=== PATIENT | female | born 1950 | race Caucasian/White ===

== ENCOUNTER 2017-06-24 17:43 | Emergency (ER) | payer MEDICARE ==
[2017-06-24 18:05] VITALS: RESP 18
--- NOTE | 2017-06-24 18:34 | ED ---
Lower Extremity Injury HPI - General Chief Complaint: Extremity Injury, Lower Stated Complaint: FALL, RT LEG AND KNEE INJURY POSS BLOODCLOT Time Seen by Provider: 06/24/17 18:09 Source: patient, RN notes reviewed Mode of arrival: wheelchair Limitations: no limitations - History of Present Illness Initial Comments: 66-year-old female presents emergency Department chief complaint trip and fall. Patient states she fell 4 days ago onto her right knee and right russell region. She states that it immediately started swelling and she's had bruising. States of bruising seems to traveling down her right leg. She denies any calf pain or swelling to the calf. She does have some mild right anterior russell swelling in one of her right knee. She states that it hurts to ambulate. Patient denies any paresthesias denies any swelling to her thigh or right ankle region. She states pain is related to her right knee and right proximal tib- fib region - Related Data Home Medications Medication Instructions Recorded Confirmed ALPRAZolam [Xanax] 0.5 mg PO DAILY 02/12/14 03/14/16 Atenolol [Tenormin] 25 mg PO DAILY 02/12/14 03/14/16 Fish Oil/Dha/Epa [Fish Oil 1,200 1 each PO DAILY 02/12/14 03/14/16 mg Fish Oil] Levothyroxine Sodium [Synthroid] 125 mcg PO DAILY 02/12/14 03/14/16 Sertraline [Zoloft] 200 mg PO DAILY 02/12/14 03/14/16 Ubidecarenone [Coq-10] 200 mg PO DAILY 02/12/14 03/14/16 Vitamin D3 Drops 1 drop PO DAILY 08/08/14 03/14/16 Previous Rx's Medication Instructions Recorded Acetaminophen-Codeine 300-30mg 1 tab PO Q4H PRN #20 tablet 06/24/17 [Tylenol #3] Allergies Allergy/AdvReac Type Severity Reaction Status Date / Time latex Allergy Rash/Hives Verified 06/24/17 18:05 Tetracyclines Allergy Nausea & Verified 06/24/17 18:05 Vomiting,diarrhea ampicillin AdvReac Flu Verified 06/24/17 18:05 symptoms dial soap Allergy Itching Uncoded 06/24/17 18:05 Review of Systems ROS Statement: Those systems with pertinent positive or pertinent negative responses have been documented in the HPI. ROS Other: All systems not noted in ROS Statement are negative. Past Medical History Past Medical History: Cancer, Fibromyalgia, GERD/Reflux, Hyperlipidemia, Hypertension, Osteoarthritis (OA), Pneumonia, Skin Disorder, Sleep Apnea/CPAP/ BIPAP, Thyroid Disorder Additional Past Medical History / Comment(s): stage 2 Bladder cancer , Heart "Flutter" and palpitations, "spastic angina", varicose veins, hiatal hernia, reddness in arms and legs, hypoglucemia, urinary incontinence, vertigo History of Any Multi-Drug Resistant Organisms: MRSA Date of last positivie culture/infection: 11/2015 MDRO Source:: abdominal fold and nose Past Surgical History: Adenoidectomy, Appendectomy, Bladder Surgery, Hysterectomy, Tonsillectomy Additional Past Surgical History / Comment(s): D&C's, CARPAL TUNNEL GERALDINE, tumor removed from bladder, Past Anesthesia/Blood Transfusion Reactions: Motion Sickness, Postoperative Nausea & Vomiting (PONV) Additional Past Anesthesia/Blood Transfusion Reaction / Comment(s): CLAUSTROPHOBIA Past Psychological History: Anxiety, Depression Smoking Status: Never smoker Past Alcohol Use History: None Reported Past Drug Use History: None Reported - Past Family History Father Family Medical History: Cancer Additional Family Medical History / Comment(s): colon Mother Family Medical History: Diabetes Mellitus, Thyroid Disorder General Exam Limitations: no limitations General appearance: alert, in no apparent distress Head exam: Present: atraumatic, normocephalic, normal inspection Eye exam: Present: normal appearance, PERRL, EOMI. Absent: scleral icterus, conjunctival injection, periorbital swelling Respiratory exam: Present: normal lung sounds bilaterally. Absent: respiratory distress, wheezes, rales, rhonchi, stridor Cardiovascular Exam: Present: regular rate, normal rhythm, normal heart sounds. Absent: systolic murmur, diastolic murmur, rubs, gallop, clicks Extremities exam: Present: other (Right knee there is mild swelling with ecchymosis noted On the Right and Ecchymosis on the Lateral Portion of the Distal Leg. Patient Is Full Range Of Motion of the Right Knee There Is Mild Swelling to the Proximal Tib-Fib Region There Is Some Erythema Noted of the Distal Right Leg. Pulses Are Equal Bilaterally) Course Vital Signs 06/24/17 18:02 Temperature 98.2 F Pulse Rate 57 L Respiratory 18 Rate Blood Pressure 160/79 O2 Sat by Pulse 99 Oximetry Medical Decision Making - Medical Decision Making 66-year-old female presented emergency department for fall, right leg pain. Patient does have some swelling related to that injury. Patient has no acute fractures she does have severe degenerative changes to her right knee. Patient advised to follow-up with orthopedics return parameters were discussed. Disposition Clinical Impression: Fall, Contusion of knee, right, Traumatic ecchymosis of right lower leg Disposition: HOME SELF-CARE Condition: Stable Instructions: Knee Pain (ED) Additional Instructions: Please return to the Emergency Department if symptoms worsen or any other concerns. Prescriptions: Acetaminophen-Codeine 300-30mg [Tylenol #3] 1 tab PO Q4H PRN #20 tablet PRN Reason: pain Referrals: Yani Roth DO [Primary Care Provider] - 1-2 days Time of Disposition: 18:54
--- NOTE | 2017-06-24 18:41 | XR ---
EXAMINATION TYPE: XR knee complete RT, XR tibia fibula RT DATE OF EXAM: 06/24/2017 CLINICAL HISTORY: Right knee and leg pain after fall injury today TECHNIQUE: Three views of the right knee are obtained. 2 views right tibia and fibula are acquired. COMPARISON: None. FINDINGS: There is no acute fracture/dislocation evident in right knee. There is advanced joint spac e loss and subchondral cystic change lateral tibiofemoral compartment. There is moderate joint space loss and spurring patellofemoral compartment there is soft tissue prominence felt to reflect combina tion of patient's large body habitus and mild diffuse subcutaneous edema. Images of right leg show mild to moderate diffuse subcutaneous edema. There is no acute fracture or d islocation seen. Visualized portion of ankle is felt within normal limits. IMPRESSION: There is no acute fracture or dislocation in the right leg or knee.
[2017-06-24 19:36] VITALS: BP 135/63; PULSE 60; TEMP 97.9
== END 2017-06-24 19:36 | disposition home or self-care (01) ==
LOC: EC 17:43
DX: S80.01XA Contusion of right knee, initial encounter (principal); S80.11XA Contusion of right lower leg, initial encounter; I10 Essential (primary) hypertension; E07.9 Disorder of thyroid, unspecified; F41.9 Anxiety disorder, unspecified; F32.9 Major depressive disorder, single episode, unspecified; G47.30 Sleep apnea, unspecified; Z99.89 Dependence on other enabling machines and devices; Z86.14 Personal history of Methicillin resistant Staphylococcus aureus infection; Z85.51 Personal history of malignant neoplasm of bladder; Z79.899 Other long term (current) drug therapy; Z91.040 Latex allergy status; Z88.1 Allergy status to other antibiotic agents; Z88.0 Allergy status to penicillin; Z91.048 Other nonmedicinal substance allergy status; W01.0XXA Fall on same level from slipping, tripping and stumbling without subsequent striking against object, initial encounter
CPT/HCPCS: 99283

== ENCOUNTER → 2017-09-11 | Outpatient (CLI) | payer MEDICARE ==
--- NOTE | 2017-09-11 11:21 | US ---
EXAMINATION TYPE: US venous doppler duplex LE RT DATE OF EXAM: 09/11/2017 10:58 AM COMPARISON: NONE CLINICAL HISTORY: R22.43 Localized Swelling. Edema right leg SIDE PERFORMED: right TECHNIQUE: The lower extremity deep venous system is examined utilizing real time linear array sonog yoly with graded compression, doppler sonography and color-flow sonography. VESSELS IMAGED: External Iliac Vein (EIV) Common Femoral Vein Deep Femoral Vein Greater Saphenous Vein * Femoral Vein Popliteal Vein Small Saphenous Vein * Proximal Calf Veins (* superficial vessels) Right Leg: No evidence of DVT as visualized. Anechoic area right popliteal fossa = 2.4cm, probable B andres's cyst Grayscale, color doppler, spectral doppler imaging performed of the deep veins of the right lower ext remity. There is normal flow, compressibility, vascular waveforms. IMPRESSION: No ultrasound evidence for acute DVT in the right lower extremity. Small popliteal or marissa er cyst is marked towards end of study.
== END | disposition home or self-care (01) ==
LOC: RADUSWWP 10:27
PROVIDERS: ATTEND Family Medicine
DX: R22.41 Localized swelling, mass and lump, right lower limb (principal)

== ENCOUNTER → 2017-09-25 | Outpatient (CLI) | payer MEDICARE ==
--- NOTE | 2017-09-25 13:21 | MR ---
EXAMINATION TYPE: MR knee RT wo con DATE OF EXAM: 09/25/2017 COMPARISON: X-ray of the knee dated 06/24/2017 HISTORY: Right knee pain TECHNIQUE: Multiplanar, multisequence imaging of the right knee is performed without IV contrast. FINDINGS: There is severe narrowing of the lateral compartment of the knee joint with no evidence of erosive change. Moderate to severe narrowing of the medial compartment of the knee joint. There is a large suprapatellar bursal fluid collection. There does appear to be evidence of complete loss of patellar cartilage compatible with chondromalacia. Loss of cartilage involving the articular portions of the tibia and femur both of the medial and late ral compartment of the joint space compatible with chondromalacia likely post arthritic. There is grade 3 abnormal signal involving the posterior horn of the medial meniscus and there is pse udo extrusion of the meniscus. Increased fluid surrounding the MCL suggest strain without evidence of tear. Lateral collateral ligament appears intact. There is grade 3 abnormal signal involving the posterior horn and body of the lateral meniscus compatible with meniscal tear. Posterior cruciate ligament is intact. There is poor visualization of the anterior cruciate ligament and at least a partial tear suspected. Within the popliteal fossa there is a cyst measuring 1 x 1 x 2.2 cm. There is diffuse subcutaneous edema with more localized pocket of fluid accumulation along the inferi or margin of the patellar tendon. Is not entirely included in the [id number] but measures at least 7 cm in craniocaudal dimension. Patellar and quadriceps tendons have a normal appearance. Fluid trac ks along the prepatellar space. Abnormal signal within the visualized marrow likely is reactive post arthritic IMPRESSION: 1. Severe osteoarthritis with degenerative meniscal tears involving the medial and lateral meniscus a s discussed above. 2. Poor visualization the ACL suggestive of at least partial tear. 3. 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 4. MCL strain. 5. Subcutaneous fluid collection in the prepatellar space extending below the [id number] with diff use subcutaneous edema correlate clinically.
== END | disposition home or self-care (01) ==
LOC: RADMRIMAIN 12:27
PROVIDERS: ATTEND Family Medicine
DX: S83.241A Other tear of medial meniscus, current injury, right knee, initial encounter (principal); S83.281A Other tear of lateral meniscus, current injury, right knee, initial encounter; M17.11 Unilateral primary osteoarthritis, right knee; M94.261 Chondromalacia, right knee; S86.811A Strain of other muscle(s) and tendon(s) at lower leg level, right leg, initial encounter

== ENCOUNTER → 2018-02-22 | Outpatient (CLI) | payer MEDICARE, OTHER ==
--- NOTE | 2018-02-22 15:20 | CT ---
EXAMINATION TYPE: CT abdomen pelvis w con DATE OF EXAM: 02/22/2018 COMPARISON: Prior CT chest abdomen pelvis 08/07/2013 HISTORY: Follow up scan for history of bladder cancer, obs for METS CT DLP: 2530.4 mGycm Automated exposure control for dose reduction was used. TECHNIQUE: Helical acquisition of images from the lung bases through the pelvis have been completed. CONTRAST: Performed with Oral Contrast and with IV Contrast, patient injected with 100 mL of Isovue 300. FINDINGS: LUNG BASES: No significant abnormality is appreciated. AORTA: No significant abnormality is appreciated. LIVER/GB: No significant abnormality is appreciated. PANCREAS: No significant abnormality is seen. SPLEEN: No significant abnormality is seen. ADRENALS: No significant abnormality is seen. KIDNEYS: Stable atrophy noted within the left kidney as compared to right, right kidney somewhat malr otated. REPRODUCTIVE ORGANS: Uterus and adnexal structures are not seen BOWEL: No significant abnormality is seen. FREE AIR: No Free Air visible. ASCITES: None visible. PELVIC ADENOPATHY: None visualized. RETROPERITONEAL ADENOPATHY: No Retroperitoneal Adenopathy visible. URINARY BLADDER: No significant abnormality is seen. OSSEOUS STRUCTURES: Stable, possible stress changes at the sacroiliac joints. IMPRESSION: METASTATIC DISEASE IS NOT EVIDENT.
== END | disposition home or self-care (01) ==
LOC: RADCTMAIN 11:33
PROVIDERS: ATTEND Internal Medicine Hematology & Oncology
DX: C67.9 Malignant neoplasm of bladder, unspecified (principal)
CPT/HCPCS: 82565; 84520; 74177; 36415; Q9967

== ENCOUNTER 2019-12-23 05:15 | Observation (INO) | payer MEDICARE, OTHER ==
--- NOTE | 2019-12-23 06:04 | ED ---
Weakness HPI - General Chief complaint: Weakness Stated complaint: Weakness Time Seen by Provider: 12/23/19 05:17 Source: patient, EMS Mode of arrival: EMS Limitations: no limitations - History of Present Illness Initial comments: This patient is 69-year-old woman who presents by ambulance to be evaluated for right-sided numbness and lightheadedness. The patient states that she was in her kitchen this morning approximately 4 AM when she noted a feeling of numbness first in her right leg, and then also the right arm. Patient also noted that she was feeling lightheaded. When the symptoms did not rapidly go away and decided to call EMS who transported the patient here. The patient states that she has previously seen the neurologist and was told that she probably had some small vessel disease. Patient states that he numbness has markedly improved is not back to 100%. Patient denies weakness. No change in vision, speech or swallowing. MD Complaint: numbness Onset/Timin -: minutes(s) Location: [facility] Quality: numbness Consistency: now resolved Improves with: none Worsens with: none Associated Symptoms: other (Lightheadedness) - Related Data Home Medications Medication Instructions Recorded Confirmed ALPRAZolam [Xanax] 0.5 mg PO DAILY 02/12/14 06/24/17 Atenolol [Tenormin] 25 mg PO DAILY 02/12/14 06/24/17 Fish Oil/Dha/Epa [Fish Oil 1,200 1 cap PO DAILY 02/12/14 06/24/17 mg Fish Oil] Levothyroxine Sodium [Synthroid] 125 mcg PO DAILY 02/12/14 06/24/17 Sertraline [Zoloft] 200 mg PO DAILY 02/12/14 06/24/17 Ubidecarenone [Coq-10] 200 mg PO DAILY 02/12/14 06/24/17 Vitamin D3 Drops 1 drop PO DAILY 08/08/14 06/24/17 Previous Rx's Medication Instructions Recorded Acetaminophen-Codeine 300-30mg 1 tab PO Q4H PRN #20 tablet 06/24/17 [Tylenol #3] Allergies Allergy/AdvReac Type Severity Reaction Status Date / Time latex Allergy Rash/Hives Verified 06/24/17 18:53 Tetracyclines Allergy Nausea & Verified 06/24/17 18:53 Vomiting,diarrhea ampicillin AdvReac Flu Verified 06/24/17 18:53 symptoms dial soap Allergy Itching Uncoded 06/24/17 18:05 Review of Systems ROS Statement: Those systems with pertinent positive or pertinent negative responses have been documented in the HPI. ROS Other: All systems not noted in ROS Statement are negative. Constitutional: Denies: fever, chills, weakness Eyes: Denies: vision change Respiratory: Denies: cough, dyspnea Cardiovascular: Denies: chest pain, palpitations, orthopnea, edema, syncope Gastrointestinal: Denies: abdominal pain, vomiting, diarrhea Genitourinary: Denies: dysuria, hematuria Musculoskeletal: Denies: back pain Skin: Denies: rash Neurological: Reports: numbness. Denies: headache, weakness, paresthesias, co nfusion Past Medical History Past Medical History: Cancer, Fibromyalgia, GERD/Reflux, Hyperlipidemia, Hypertension, Osteoarthritis (OA), Pneumonia, Skin Disorder, Sleep Apnea/CPAP/BIPAP, Thyroid Disorder Additional Past Medical History / Comment(s): stage 2 Bladder cancer , Heart "Flutter" and palpitations, "spastic angina", varicose veins, hiatal hernia, reddness in arms and legs, hypoglucemia, urinary incontinence, vertigo History of Any Multi-Drug Resistant Organisms: MRSA Date of last positivie culture/infection: 11/2015 MDRO Source:: abdominal fold and nose Past Surgical History: Adenoidectomy, Appendectomy, Bladder Surgery, Hysterectomy, Tonsillectomy Additional Past Surgical History / Comment(s): D&C's, CARPAL TUNNEL GERALDINE, tumor removed from bladder, Past Anesthesia/Blood Transfusion Reactions: Motion Sickness, Postoperative Nausea & Vomiting (PONV) Additional Past Anesthesia/Blood Transfusion Reaction / Comment(s): CLAUSTROPHOBIA Past Psychological History: Anxiety, Depression Smoking Status: Never smoker Past Alcohol Use History: None Reported Past Drug Use History: None Reported - Past Family History Father Family Medical History: Cancer Additional Family Medical History / Comment(s): colon Mother Family Medical History: Diabetes Mellitus, Thyroid Disorder General Exam Limitations: no limitations General appearance: alert, in no apparent distress Head exam: Present: atraumatic, normocephalic Eye exam: Present: normal appearance. Absent: scleral icterus, conjunctival injection ENT exam: Present: normal oropharynx Neck exam: Present: normal inspection Respiratory exam: Present: normal lung sounds bilaterally. Absent: respiratory distress, wheezes, rales, rhonchi, stridor Cardiovascular Exam: Present: regular rate, normal rhythm, normal heart sounds. Absent: systolic murmur, diastolic murmur, rubs, gallop GI/Abdominal exam: Present: soft. Absent: distended, tenderness, guarding, rebound, rigid, mass Extremities exam: Present: normal inspection, normal capillary refill. Absent: pedal edema, calf tenderness Back exam: Present: normal inspection. Absent: CVA tenderness (R), CVA tenderness (L) Neurological exam: Present: alert, oriented X3, CN II-XII intact. Absent: motor sensory deficit Skin exam: Present: warm, dry, intact, normal color. Absent: rash Course Vital Signs 12/23/19 12/23/19 12/23/19 05:17 06:03 06:20 Temperature 99.3 F Pulse Rate 85 84 72 Respiratory 18 18 Rate Blood Pressure 172/83 158/62 155/87 O2 Sat by Pulse 100 98 100 Oximetry 12/23/19 12/23/19 12/23/19 06:30 06:40 06:50 Temperature Pulse Rate 73 75 67 Respiratory Rate Blood Pressure 157/79 159/79 161/81 O2 Sat by Pulse 100 100 99 Oximetry 12/23/19 07:00 Temperature Pulse Rate 68 Respiratory Rate Blood Pressure 162/76 O2 Sat by Pulse 99 Oximetry - Reevaluation(s) Reevaluation #1: 12/23/19 06:18 Case is discussed with Dr. Valencia covering the stroke team tonight. His treatment recommendations are incorporated. EKG Findings - EKG Results: EKG: interpreted by ERMD, sinus rhythm (Rate 76 bpm) - Blocks, [place], Hypertrophy, ST Abn: AV and intraventricular conduction: left bundle branch block (fixed/int ermittent, complete/incomplete) (Incomplete) Chamber hypertrophy or enlargement: only voltage criteria for left ventricular hypertrophy Repolarization changes or abnormalities: nonspecific abnormality, ST segment, and/or T wave Medical Decision Making - Lab Data Result diagrams: 12/23/19 06:00 12/23/19 06:00 Lab Results 12/23/19 12/23/19 12/23/19 Range/Units 06:00 06:00 06:00 WBC 4.9 (3.8-10.6) k/uL RBC 3.93 (3.80-5.40) m/uL Hgb 12.3 (11.4-16.0) gm/dL Hct 36.6 (34.0-46.0) % MCV 93.0 (80.0-100.0) fL MCH 31.3 (25.0-35.0) pg MCHC 33.6 (31.0-37.0) g/dL RDW 15.4 (11.5-15.5) % Plt Count 166 (150-450) k/uL Neutrophils % 57 % Lymphocytes % 35 % Monocytes % 4 % Eosinophils % 3 % Basophils % 0 % Neutrophils # 2.8 (1.3-7.7) k/uL Lymphocytes # 1.7 (1.0-4.8) k/uL Monocytes # 0.2 (0-1.0) k/uL Eosinophils # 0.1 (0-0.7) k/uL Basophils # 0.0 (0-0.2) k/uL PT 9.8 (9.0-12.0) sec INR 0.9 (<1.2) APTT 23.4 (22.0-30.0) sec Sodium 138 (137-145) mmol/L Potassium 5.1 (3.5-5.1) mmol/L Chloride 104 (98-107) mmol/L Carbon Dioxide 26 (22-30) mmol/L Anion Gap 8 mmol/L BUN 26 H (7-17) mg/dL Creatinine 0.88 (0.52-1.04) mg/dL Est GFR (CKD-EPI)AfAm 79 (>60 ml/min/1.73 sqM) Est GFR (CKD-EPI)NonAf 69 (>60 ml/min/1.73 sqM) Glucose 92 (74-99) mg/dL POC Glucose (mg/dL) (75-99) mg/dL POC Glu [employer] ID Calcium 9.0 (8.4-10.2) mg/dL Total Bilirubin 0.7 (0.2-1.3) mg/dL AST 33 (14-36) U/L ALT 18 (4-34) U/L Alkaline Phosphatase 78 (38-126) U/L Troponin I (0.000-0.034) ng/mL Total Protein 7.4 (6.3-8.2) g/dL Albumin 4.5 (3.5-5.0) g/dL 12/23/19 12/23/19 Range/Units 06:00 06:25 WBC (3.8-10.6) k/uL RBC (3.80-5.40) m/uL Hgb (11.4-16.0) gm/dL Hct (34.0-46.0) % MCV (80.0-100.0) fL MCH (25.0-35.0) pg MCHC (31.0-37.0) g/dL RDW (11.5-15.5) % Plt Count (150-450) k/uL Neutrophils % % Lymphocytes % % Monocytes % % Eosinophils % % Basophils % % Neutrophils # (1.3-7.7) k/uL Lymphocytes # (1.0-4.8) k/uL Monocytes # (0-1.0) k/uL Eosinophils # (0-0.7) k/uL Basophils # (0-0.2) k/uL PT (9.0-12.0) sec INR (<1.2) APTT (22.0-30.0) sec Sodium (137-145) mmol/L Potassium (3.5-5.1) mmol/L Chloride (98-107) mmol/L Carbon Dioxide (22-30) mmol/L Anion Gap mmol/L BUN (7-17) mg/dL Creatinine (0.52-1.04) mg/dL Est GFR (CKD-EPI)AfAm (>60 ml/min/1.73 sqM) Est GFR (CKD-EPI)NonAf (>60 ml/min/1.73 sqM) Glucose (74-99) mg/dL POC Glucose (mg/dL) 97 (75-99) mg/dL POC Glu [employer] ID Tomas Martinez Calcium (8.4-10.2) mg/dL Total Bilirubin (0.2-1.3) mg/dL AST (14-36) U/L ALT (4-34) U/L Alkaline Phosphatase (38-126) U/L Troponin I <0.012 (0.000-0.034) ng/mL Total Protein (6.3-8.2) g/dL Albumin (3.5-5.0) g/dL Disposition Clinical Impression: Dizziness, TIA (transient ischemic attack) Disposition: ADMITTED IP TO THIS HOSP Condition: Fair Is patient prescribed a controlled substance at d/c from ED?: No Referrals: Yani Roth DO [Primary Care Provider] - 1-2 days
[2019-12-23 06:26] LABS: Glucose,Whole Blood 97 mg/dL (75-99)
[2019-12-23 06:28] LABS: Basophils % (A) 0 %; Eosinophils # (A) 0.1 k/uL (0-0.7); Eosinophils % (A) 3 %; HCT 36.6 % (34.0-46.0); HGB 12.3 gm/dL (11.4-16.0); Lymphocytes # (A) 1.7 k/uL (1.0-4.8); Lymphocytes % (A) 35 %; MCH 31.3 pg (25.0-35.0); MCHC 33.6 g/dL (31.0-37.0); Mean Platelet Volume 7.3; Monocytes # (A) 0.2 k/uL (0-1.0); Monocytes % (A) 4 %; Neutrophils # (A) 2.8 k/uL (1.3-7.7); Neutrophils % (A) 57 %; Platelet Count 166 k/uL (150-450); RBC 3.93 m/uL (3.80-5.40); RDW 15.4 % (11.5-15.5); WBC 4.9 k/uL (3.8-10.6)
--- NOTE | 2019-12-23 06:31 | CT ---
EXAMINATION TYPE: CT brain wo con for TPA DATE OF EXAM: 12/23/2019 COMPARISON: None HISTORY: Rt sided weakness CT DLP: mGycm Automated exposure control for dose reduction was used. There is some cerebral cortical atrophy. There is no mass effect nor midline shift. There is no sign of intracranial hemorrhage. There is 7 mm hypodensity in the left thalamus. There is small linear are a of hypodensity in the white matter of the insula right temporal lobe. These are consistent with old lacunar infarcts. There is no midline shift. There is no evidence of intracranial hemorrhage. The ca lvarium is intact. IMPRESSION: Cerebral atrophy. Old lacunar infarcts. No acute intracranial abnormality.
[2019-12-23 06:42] LABS: Albumin 4.5 g/dL (3.5-5.0); Total Bilirubin 0.7 mg/dL (0.2-1.3); Total Protein 7.4 g/dL (6.3-8.2)
[2019-12-23 06:43] LABS: Potassium 5.1 mmol/L (3.5-5.1)
[2019-12-23 06:53] LABS: INR 0.9 (<1.2); Partial Thromboplastin Time 23.4 sec (22.0-30.0); Prothrombin Time 9.8 sec (9.0-12.0)
--- NOTE | 2019-12-23 06:55 | CT ---
EXAMINATION TYPE: CT angio head neck DATE OF EXAM: 12/23/2019 COMPARISON: None HISTORY: Rt sided weakness CT DLP: 683.9 mGycm Automated exposure control for dose reduction was used. CONTRAST: Performed with IV Contrast, patient injected with 65 mL of Isovue 370. There are 3-D post processed images. Images were obtained from the aortic arch to the vertex of the brain with IV contrast. There is normal branching pattern of the great vessels on the aortic arch. There is bilateral arteria l flow in the subclavian arteries. There is arterial flow in the common internal and external carotid arteries bilaterally. There is wide patency of the carotid artery bifurcations. There is arterial fl ow in both vertebral arteries. Right vertebral artery is much larger than the left. The basilar arter y appears to fill only from the right vertebral artery. There is no evidence of carotid or vertebral artery aneurysm or dissection. There is arterial flow in the vertebrobasilar artery system. There is arterial flow in the anterior m iddle and posterior cerebral arteries. There is normal contrast opacification of the venous sinuses. I see no evidence of arterial stenosis. There is no evidence of intracranial aneurysm or neovasculari ty. There is no mass effect. IMPRESSION: Asymmetric vertebral arteries is probably developmental. No evidence of hemodynamic stenosis. No aneu rysm or neovascularity.
--- NOTE | 2019-12-23 07:01 | XR ---
EXAMINATION TYPE: XR chest 1V DATE OF EXAM: 12/23/2019 COMPARISON: 12/12/2015 HISTORY: Altered mental status TECHNIQUE: Single view FINDINGS: There is no heart failure nor confluent pneumonic infiltrate. Costophrenic angles are clear . There are chest leads. Bony thorax is intact. IMPRESSION: No active cardiopulmonary disease. Normal heart. No change.
[2019-12-23] MEDS ORDERED: ASPIRIN 325 MG TAB PO STA (07:06)
[2019-12-23] MEDS ORDERED: Acetaminophen-Codeine 300-30mg TAB PO PRN (07:09)
[2019-12-23] MEDS ORDERED: SERTRALINE 100 MG TAB PO SCH (09:00)
[2019-12-23] MEDS: ATENOLOL 25 MG TAB PO SCH (09:22)
[2019-12-23] MEDS: DOCUSATE 100 MG CAP PO SCH ×3 (09:22→22:30)
[2019-12-23] MEDS: LEVOTHYROXINE 125 MCG TAB PO SCH (09:22)
[2019-12-23] MEDS: ATORVASTATIN 40 MG TAB PO SCH ×2 (09:23→10:13)
[2019-12-23] MEDS: ALPRAZolam 0.5 MG TAB PO SCH (09:27)
[2019-12-23] MEDS: METOPROLOL SUCCINATE (ER) 25 MG TAB.ER.24H PO SCH (10:17)
[2019-12-23 16:30] LABS: Glucose,Whole Blood 107 mg/dL (75-99)
[2019-12-23] MEDS: SERTRALINE 100 MG TAB PO SCH (20:25)
[2019-12-23] MEDS ORDERED: ALPRAZolam 0.5 MG TAB PO PRN (21:00)
--- NOTE | 2019-12-23 22:16 | P.HPIM ---
History of Present Illness H&P Date: 12/23/19 Chief Complaint: numbness, weakness Mckenna Johnson is a 69 yo F with PMH of HTN, bladder cancer, postherpetic neuralgia, NICOLA who presented to the ED complaining of R sided tingling this morning. She states she was unable to sleep and around 4 am was in the kitchen when she felt numbness first in her R leg, then R arm with lightheadedness. When these symptoms persisted she called EMS and came to the ED. She notes she has seen neurology in the past due to chronic neuropathic pain and was told she has small vessel disease on imaging. On presentation she was hypertensive, labs normal, CT brain no acute process, CTA unremarkable. She feels her symptoms are significantly improved at this time. Review of Systems All systems: negative Constitutional: Denies chills, Denies fever Eyes: denies blurred vision, denies pain Ears, nose, mouth and throat: Denies headache, Denies sore throat Cardiovascular: Denies chest pain, Denies shortness of breath Respiratory: Denies cough Gastrointestinal: Denies abdominal pain, Denies diarrhea, Denies nausea, Denies vomiting Genitourinary: Denies dysuria, Denies hematuria Musculoskeletal: Denies myalgias Integumentary: Denies pruritus, Denies rash Neurological: Reports lack of coordination, Reports numbness, Reports weakness Psychiatric: Denies anxiety, Denies depression Endocrine: Denies fatigue, Denies weight change Past Medical History Past Medical History: Cancer, Fibromyalgia, GERD/Reflux, Hyperlipidemia, Hypertension, Osteoarthritis (OA), Pneumonia, Skin Disorder, Sleep Apnea/CPAP/BIPAP, Thyroid Disorder Additional Past Medical History / Comment(s): stage 2 Bladder cancer , Heart "Flutter" and palpitations, "spastic angina", varicose veins, hiatal hernia, reddness in arms and legs, hypoglycemia, urinary incontinence, vertigo History of Any Multi-Drug Resistant Organisms: MRSA Date of last positivie culture/infection: 11/2015 MDRO Source:: abdominal fold and nose Past Surgical History: Adenoidectomy, Appendectomy, Bladder Surgery, Hysterectomy, Tonsillectomy Additional Past Surgical History / Comment(s): D&C's, CARPAL TUNNEL GERALDINE, tumor removed from bladder, Past Anesthesia/Blood Transfusion Reactions: Motion Sickness, Postoperative Nausea & Vomiting (PONV) Additional Past Anesthesia/Blood Transfusion Reaction / Comment(s): CLAUSTROPHOBIA Past Psychological History: Anxiety, Depression Smoking Status: Never smoker Past Alcohol Use History: None Reported Past Drug Use History: None Reported - Past Family History Father Family Medical History: Cancer Additional Family Medical History / Comment(s): colon Mother Family Medical History: Diabetes Mellitus, Thyroid Disorder Medications and Allergies Home Medications Medication Instructions Recorded Confirmed Type Fish Oil/Dha/Epa [Fish Oil 1,200 1 cap PO DAILY 02/12/14 12/23/19 History mg Fish Oil] Levothyroxine Sodium [Synthroid] 125 mcg PO DAILY 02/12/14 12/23/19 History Sertraline [Zoloft] 200 mg PO W/SUPPER 02/12/14 12/23/19 History Ubidecarenone [Coq-10] 200 mg PO DAILY 02/12/14 12/23/19 History Vitamin D3 Drops 1 drop PO DAILY 08/08/14 12/23/19 History ALPRAZolam [Xanax] 0.5 mg PO W/SUPPER 12/23/19 12/23/19 History Amitriptyline HCl [Elavil] 10 - 20 mg PO HS 12/23/19 12/23/19 History L.acidoph,Paracasei, B.lactis 1 cap PO DAILY 12/23/19 12/23/19 History [Probiotic] Metoprolol Succinate [Toprol XL] 25 mg PO DAILY 12/23/19 12/23/19 History Nystatin 100,000 Unit/gm Powd 1 applic TOPICAL BID 12/23/19 12/23/19 History [Mycostatin Powder] Ramipril [Altace] 2.5 mg PO HS 12/23/19 12/23/19 History Allergies Allergy/AdvReac Type Severity Reaction Status Date / Time ampicillin AdvReac Flu Verified 12/23/19 07:28 symptoms clindamycin AdvReac Rash/Hives Verified 12/23/19 07:28 latex AdvReac Rash/Hives Verified 12/23/19 07:28 Tetracyclines AdvReac Nausea & Verified 12/23/19 07:28 Vomiting,diarrhea dial soap AdvReac Itching Uncoded 12/23/19 07:28 Physical Exam Vitals: Vital Signs Temp Pulse Pulse Resp BP BP Pulse Ox 12/23/19 20:00 97.9 F 68 18 120/55 98 12/23/19 14:37 97.3 F L 71 18 142/74 95 12/23/19 14:25 98.7 F 68 18 150/83 100 12/23/19 12:50 67 18 147/76 100 12/23/19 11:16 79 18 138/63 98 12/23/19 10:14 70 17 135/74 100 12/23/19 09:24 74 16 139/73 100 12/23/19 07:05 97.7 F 76 17 164/78 100 12/23/19 07:00 68 162/76 99 12/23/19 06:50 67 161/81 99 12/23/19 06:40 75 159/79 100 12/23/19 06:30 73 157/79 100 12/23/19 06:20 72 155/87 100 12/23/19 06:03 84 18 158/62 98 12/23/19 05:17 99.3 F 85 18 172/83 100 Intake and Output 12/23/19 12/23/19 12/23/19 06:59 14:59 22:59 Intake Total 350 Balance 350 Intake: Oral 350 Other: Weight 98.883 kg 98.883 kg General: well nourished, well developed, NAD. Vitals reviewed Eyes: PERRL, EOMI, conjunctiva normal HENT: normocephalic, mucus membranes moist Neck: supple, no JVD Lungs: normal respiratory effort, no wheezes or rales CV: Regular rate and rhythm, no murmur. Peripheral pulses 2+ Abdomen: soft, nondistended, no organomegaly Lymph: no cervical or axillary LAD Skin: warm and dry. Neuro: A&Ox3, normal mood and affect. Str 5/5 and symmetric BUE, CN II-XII intact Results CBC & Chem 7: 12/23/19 06:00 12/23/19 06:00 Labs: Abnormal Lab Results - Last 24 Hours (Table) 12/23/19 12/23/19 Range/Units 06:00 16:24 BUN 26 H (7-17) mg/dL POC Glucose (mg/dL) 107 H (75-99) mg/dL Thrombosis Risk Factor Assmnt - Choose All That Apply Any of the Below Risk Factors Present?: Yes Each Factor Represents 1 point: Obesity (BMI >25), Swollen legs (current) Each Risk Factor Represents 2 Points: Age 61-74 years Other congenital or acquired thrombophilia - If yes, enter type in comment: No Thrombosis Risk Factor Assessment Total Risk Factor Score: 4 Thrombosis Risk Factor Assessment Level: Moderate Risk Assessment and Plan (1) Numbness and tingling of right arm and leg Current Visit: Yes Status: Acute Code(s): R20.0 - ANESTHESIA OF SKIN; R20.2 - PARESTHESIA OF SKIN SNOMED Code(s): 24060005 (2) Generalized anxiety disorder Current Visit: Yes Status: Acute Code(s): F41.1 - GENERALIZED ANXIETY DISORDER SNOMED Code(s): 67472403 (3) Dizziness Current Visit: Yes Status: Acute Code(s): R42 - DIZZINESS AND GIDDINESS SNOMED Code(s): 986335311 (4) Fibromyalgia Current Visit: No Status: Acute Code(s): M79.7 - FIBROMYALGIA SNOMED Code(s): 302349525 (5) Hypertension Current Visit: No Status: Acute Code(s): I10 - ESSENTIAL (PRIMARY) HYPERTENSION SNOMED Code(s): 95688771 (6) Neuropathy Current Visit: No Status: Acute Code(s): G62.9 - POLYNEUROPATHY, UNSPECIFIED SNOMED Code(s): 210559543 Plan: 1. R arm and leg numbness and tingling. Concern this could represent TIA as CT does show old lacunar infarcts. Neurology consult. Start ASA and lipitor 2. HTN. Continue toprol 3. Hypothyroid. Continue synthroid 4. NICOLA. Continue zoloft
--- NOTE | 2019-12-23 22:21 | P.CNNES ---
History of Present Illness Consult date: 12/23/19 Requesting physician: Jay Garcia Reason for Consult: TIA versus ischemic stroke. History of Present Illness: Patient is a 69-year-old right-handed female, who came to the ER for right-sided numbness and lightheadedness. She was in her kitchen standing by the counter, in the morning approximately 4 AM when she noted a feeling of numbness first in the right leg and within a few minutes also involved the right arm. Subsequently she felt balance issues, difficulty getting around without holding onto any objects. She was feeling lightheaded. When the symptoms did not improve, she decided to come to the ER. Patient arrived in the ER at 5:15 AM. Patient's vitals on arrival shows blood pressure 172/83, pulse 85, temperature 99.3. Patient states that she has not slept that night, was wide awake before the symptoms started. Patient underwent CT head, which revealed cerebral atrophy. Old lacunar infarct. No acute intracranial abnormality. CT angiography of the head and neck showed asymmetric vertebral arteries is probably developmental. No evidence of hemodynamic stenosis. No aneurysm or neovascularity. Chest x-ray normal. EKG showed normal sinus rhythm. Incomplete left bundle-branch block. CBC, Chem-20 normal. Patient had a negative MS panel with negative oligoclonal bands on 03/19/2014. IgG index was negative. Patient denies any slurred speech, facial droop or visual loss, although patient briefly felt things were moving in the vision while she was standing on the counter. Denies any facial numbness. Patient states that all her symptoms resolved by 8-9 AM. At present she has no symptoms. No headache. Patient denies any history of strokes or TIA. She was previously told of having small vessel disease in the brain. Patient does not take any antiplatelet medication at home. She states that she was told by her piper installer to take baby aspirin 3 years ago but she has not been taking it. She denies any tobacco use. She has been told of having hypoglycemia, but also has hypertension. Denies diabetes. Review of Systems As per HPI. All other review of systems were reviewed and completely unremarkable. Past Medical History Past Medical History: Cancer, Fibromyalgia, GERD/Reflux, Hyperlipidemia, H ypertension, Osteoarthritis (OA), Pneumonia, Skin Disorder, Sleep Apnea/CPAP/BIPAP, Thyroid Disorder Additional Past Medical History / Comment(s): stage 2 Bladder cancer , Heart "Flutter" and palpitations, "spastic angina", varicose veins, hiatal hernia, reddness in arms and legs, hypoglycemia, urinary incontinence, vertigo History of Any Multi-Drug Resistant Organisms: MRSA Date of last positivie culture/infection: 11/2015 MDRO Source:: abdominal fold and nose Past Surgical History: Adenoidectomy, Appendectomy, Bladder Surgery, Hysterectomy, Tonsillectomy Additional Past Surgical History / Comment(s): D&C's, CARPAL TUNNEL GERALDINE, tumor removed from bladder, Past Anesthesia/Blood Transfusion Reactions: Motion Sickness, Postoperative Nausea & Vomiting (PONV) Additional Past Anesthesia/Blood Transfusion Reaction / Comment(s): CLAUSTROPHOBIA Past Psychological History: Anxiety, Depression Smoking Status: Never smoker Past Alcohol Use History: None Reported Past Drug Use History: None Reported - Past Family History Father Family Medical History: Cancer Additional Family Medical History / Comment(s): colon Mother Family Medical History: Diabetes Mellitus, Thyroid Disorder Medications and Allergies Home Medications Medication Instructions Recorded Confirmed Type Fish Oil/Dha/Epa [Fish Oil 1,200 1 cap PO DAILY 02/12/14 12/23/19 History mg Fish Oil] Levothyroxine Sodium [Synthroid] 125 mcg PO DAILY 02/12/14 12/23/19 History Sertraline [Zoloft] 200 mg PO W/SUPPER 02/12/14 12/23/19 History Ubidecarenone [Coq-10] 200 mg PO DAILY 02/12/14 12/23/19 History Vitamin D3 Drops 1 drop PO DAILY 08/08/14 12/23/19 History ALPRAZolam [Xanax] 0.5 mg PO W/SUPPER 12/23/19 12/23/19 History Amitriptyline HCl [Elavil] 10 - 20 mg PO HS 12/23/19 12/23/19 History L.acidoph,Paracasei, B.lactis 1 cap PO DAILY 12/23/19 12/23/19 History [Probiotic] Metoprolol Succinate [Toprol XL] 25 mg PO DAILY 12/23/19 12/23/19 History Nystatin 100,000 Unit/gm Powd 1 applic TOPICAL BID 12/23/19 12/23/19 History [Mycostatin Powder] Ramipril [Altace] 2.5 mg PO HS 12/23/19 12/23/19 History Allergies Allergy/AdvReac Type Severity Reaction Status Date / Time ampicillin AdvReac Flu Verified 12/23/19 07:28 symptoms clindamycin AdvReac Rash/Hives Verified 12/23/19 07:28 latex AdvReac Rash/Hives Verified 12/23/19 07:28 Tetracyclines AdvReac Nausea & Verified 12/23/19 07:28 Vomiting,diarrhea dial soap AdvReac Itching Uncoded 12/23/19 07:28 Physical Examination - Vital Signs Vital Signs: Vital Signs Temp Pulse Pulse Resp BP BP Pulse Ox 12/23/19 14:37 97.3 F L 71 18 142/74 95 12/23/19 14:25 98.7 F 68 18 150/83 100 12/23/19 12:50 67 18 147/76 100 12/23/19 11:16 79 18 138/63 98 12/23/19 10:14 70 17 135/74 100 12/23/19 09:24 74 16 139/73 100 12/23/19 07:05 97.7 F 76 17 164/78 100 12/23/19 07:00 68 162/76 99 12/23/19 06:50 67 161/81 99 12/23/19 06:40 75 159/79 100 12/23/19 06:30 73 157/79 100 12/23/19 06:20 72 155/87 100 12/23/19 06:03 84 18 158/62 98 12/23/19 05:17 99.3 F 85 18 172/83 100 Intake and Output 12/23/19 12/23/19 12/23/19 06:59 14:59 22:59 Intake Total 350 Balance 350 Intake: Oral 350 Other: Weight 98.883 kg 98.883 kg On examination patient is an elderly female, in no acute distress. Patient is alert awake oriented to time place and person. Speech and language functions are normal. Attention, concentration and fund of knowledge is adequate. On cranial nerve examination, pupils are round and reactive to light, visual shaver are full on confrontation. Extraocular muscle intact with no nystagmus. Face is symmetric and tongue protrudes the midline. Palate elevation sensation normal. Hearing and shoulder shrug normal. On muscle strength testing there is no pronator drift and the strength is normal in arms and legs distally and proximally. Reflexes are 1+ and plantars downgoing. Sensory touch is equal. No ataxia for [id number] testing. Tone and bulk of muscles normal. Gait deferred. There is no carotid bruit or murmur. Peripheral pulses are present. No edema. Abdomen is soft nontender. Chest is clear. Results - Laboratory Findings CBC and BMP: 12/23/19 06:00 12/23/19 06:00 Abnormal Lab Findings: Abnormal Labs 12/23/19 12/23/19 06:00 16:24 BUN 26 H POC Glucose (mg/dL) 107 H Assessment and Plan Assessment: * Probable TIA manifesting with numbness of the right arm and leg, slight gait imbalance and dizziness. Symptoms resolved in about 4-5 hours. * Hypertension * Obesity. Plan: * Patient will undergo an MRI of the brain to rule out CVA. Current NIH stroke scale is 0. * 2-D echo with bubble study to rule out PFO. * Fasting a.m. lipid panel, hemoglobin A1c, B12, folate and TSH. * Patient has been started on aspirin 325 mg and Lipitor. * We will follow.
[2019-12-23 22:45] LABS: Cholesterol 280 mg/dL (<200); HDL Cholesterol 57 mg/dL (40-60); LDL Cholesterol,Calculated 191 mg/dL (0-99); Triglycerides 161 mg/dL (<150)
[2019-12-24 00:02] LABS: T4, Free (Free Thyroxine) 1.52 ng/dL (0.78-2.19)
[2019-12-24 00:49] VITALS: RESP 16
[2019-12-24 05:20] LABS: Hemoglobin A1C 5.5 % (4.0-6.0)
[2019-12-24] MEDS: LEVOTHYROXINE 125 MCG TAB PO SCH (05:44)
[2019-12-24] MEDS: ASPIRIN 325 MG TAB PO SCH (07:55)
[2019-12-24] MEDS: METOPROLOL SUCCINATE (ER) 25 MG TAB.ER.24H PO SCH (07:55)
[2019-12-24] MEDS: ALPRAZolam 0.5 MG TAB PO SCH (07:55)
[2019-12-24] MEDS: DOCUSATE 100 MG CAP PO SCH ×3 (07:55→23:58)
[2019-12-24] MEDS: ATORVASTATIN 40 MG TAB PO SCH (07:55)
[2019-12-24] MEDS: ATENOLOL 25 MG TAB PO SCH (08:28)
--- NOTE | 2019-12-24 08:53 | MR ---
EXAMINATION TYPE: MR brain wo con DATE OF EXAM: 12/24/2019 8:43 AM COMPARISON: 02/12/2016 HISTORY: CVA versus TIA. Right sided numbness leg and arm, loss of coordination. FINDINGS: The ventricles, basal cisterns and sulci overlying the cerebral convexities are mildly enlarged. There is evidence of mild periventricular white matter ischemic demyelination. Remote deep white matter insults are also noted. No acute edema is seen on diffusion weighted imaging. There is no evidence for midline shift or mass effect. Acute intracranial hemorrhage or extra-axial collection is not evident. The paranasal sinuses and mastoid air cells are well-aerated. IMPRESSION: Age-related atrophic and chronic small vessel ischemic change. No acute intracranial process at this time.
[2019-12-24 11:41] LABS: Folate, Serum 18.4 ng/mL
--- NOTE | 2019-12-24 11:49 | ECHOF ---
Referral Reason:CVA versus TIA MEASUREMENTS -------- HEIGHT: 152.4 cm WEIGHT: 103.0 kg BP: 122/57 RVIDd: 2.8 cm (< 3.3) IVSd: 1.3 cm (0.6 - 1.1) LVIDd: 4.4 cm (3.9 - 5.3) LVPWd: 1.2 cm (0.6 - 1.1) IVSs: 1.8 cm LVIDs: 3.0 cm LVPWs: 2.2 cm LA Diam: 3.2 cm (2.7 - 3.8) LAESV Index (A-L): 26.06 ml/m Ao Diam: 3.0 cm (2.0 - 3.7) AV Cusp: 1.8 cm (1.5 - 2.6) MV EXCURSION: 18.221 mm (> 18.000) MV EF SLOPE: 137 mm/s (70 - 150) EPSS: 0.7 cm MV E Curtis: 0.74 m/s MV DecT: 264 ms MV A Curtis: 0.92 m/s MV E/A Ratio: 0.81 FINDINGS -------- Sinus rhythm. This was a technically adequate study. The left ventricular size is normal. There is mild concentric left ventricular hypertrophy. Overa ll left ventricular systolic function is low-normal with, an EF between 50 - 55 %. The right ventricle is normal in size. Normal LA size by volume 22+/-6 ml/m2. The right atrial size is normal. Contrast study was performed with 2 iv injections of 8 ccs of agitated normal saline, at rest, and wi th cough. No PFO noted Interatrial and interventricular septum intact. There is mild aortic valve sclerosis. The mitral valve is normal. Mild mitral regurgitation is present. The tricuspid valve appears structurally normal. The pulmonic valve was not well visualized. The aortic root size is normal. Normal inferior vena cava with normal inspiratory collapse consistent with estimated right atrial pre ssure of 5 mmHg. There is no pericardial effusion. CONCLUSIONS -------- 1. There is mild concentric left ventricular hypertrophy. 2. Overall left ventricular systolic function is low-normal with, an EF between 50 - 55 %. 3. Normal LA size by volume 22+/-6 ml/m2. 4. Contrast study was performed with 2 iv injections of 8 ccs of agitated normal saline, at rest, and with cough. 5. No PFO noted 6. Interatrial and interventricular septum intact. 7. There is mild aortic valve sclerosis. 8. Mild mitral regurgitation is present. 9. The tricuspid valve appears structurally normal. 10. The pulmonic valve was not well visualized. 11. There is no pericardial effusion. MAXILLOFACIAL PROSTHETICS DENTIST: Sheyla Land RDCS
--- NOTE | 2019-12-24 17:48 | P.PN ---
Subjective Progress Note Date: 12/24/19 Patient feels fine. All symptoms resolved. She walked well. Objective - Vital Signs Vital signs: Vital Signs Temp 97.5 F L 12/24/19 16:00 Pulse 65 12/24/19 16:00 Resp 16 12/24/19 16:00 BP 140/71 12/24/19 16:00 Pulse Ox 98 12/24/19 16:00 Intake & Output 12/23/19 12/24/19 12/24/19 18:59 06:59 18:59 Intake Total 350 440 Balance 350 440 Weight 98.883 kg 103.2 kg Intake: Oral 350 440 Other: # Voids 1 2 - Exam Normal, nonfocal. - Labs CBC & Chem 7: 12/23/19 06:00 12/23/19 06:00 Labs: Abnormal Lab Results - Last 24 Hours (Table) 12/23/19 12/23/19 Range/Units 06:00 06:00 Triglycerides 161 H (<150) mg/dL Cholesterol 280 H (<200) mg/dL LDL Cholesterol, Calc 191 H (0-99) mg/dL TSH 0.388 L (0.465-4.680) mIU/L Assessment and Plan Assessment: * Probable TIA manifesting with numbness of the right arm and leg, slight gait imbalance and dizziness. Symptoms resolved in about 4-5 hours. * Hypertension * Hyperlipidemia * Obesity. Plan: * MRI of the brain negative for acute CVA. Current NIH stroke scale is 0. * 2-D echo with bubble study showed mild concentric LVH. Left ventricle systolic function is low normal with EF between 50-55%. Normal left atrial size. Contrast study was performed with 2 IV injections of 8 mL of agitated normal saline at rest and with cough. No PFO noted. Interatrial and interventricular septum intact. Mild aortic valve sclerosis. * Fasting a.m. lipid panel revealed total cholesterol 280, LDL 191, HDL 57 and triglycerides 161. Hemoglobin A1c 5.5. B12 496, folate 18.4, TSH is mildly decreased 0.388. * Continue aspirin 325 mg and Lipitor 40 mg. * Neurologically clear for discharge.
[2019-12-24] MEDS: SERTRALINE 100 MG TAB PO SCH (19:41)
--- NOTE | 2019-12-24 20:59 | P.PN ---
Subjective Progress Note Date: 12/24/19 Pt feels improved today, states her symptoms completely resolved yesterday as the day went on. Pt for echo today, labs show HLD. She is tolerating ASA and lipitor well Objective - Vital Signs Vital signs: Vital Signs Temp 97.5 F L 12/24/19 16:00 Pulse 65 12/24/19 16:00 Resp 16 12/24/19 16:00 BP 140/71 12/24/19 16:00 Pulse Ox 98 12/24/19 16:00 Intake & Output 12/24/19 12/24/19 12/25/19 06:59 18:59 06:59 Intake Total 680 Balance 680 Weight 103.2 kg Intake: Oral 680 Other: # Voids 1 2 - Exam Gen: well developed white female in NAD HEENT: normocephalic, atrauamtic, mucus membranes moist CV: RRR, no murmur Lungs: clear throughout. Normal effort Neuro: Alert and oriented x3, no focal deficits - Labs CBC & Chem 7: 12/23/19 06:00 12/23/19 06:00 Labs: Abnormal Lab Results - Last 24 Hours (Table) 12/23/19 12/23/19 Range/Units 06:00 06:00 Triglycerides 161 H (<150) mg/dL Cholesterol 280 H (<200) mg/dL LDL Cholesterol, Calc 191 H (0-99) mg/dL TSH 0.388 L (0.465-4.680) mIU/L Assessment and Plan (1) Numbness and tingling of right arm and leg Current Visit: Yes Status: Acute Code(s): R20.0 - ANESTHESIA OF SKIN; R20.2 - PARESTHESIA OF SKIN SNOMED Code(s): 92808696 (2) Generalized anxiety disorder Current Visit: Yes Status: Acute Code(s): F41.1 - GENERALIZED ANXIETY DISORDER SNOMED Code(s): 02820393 (3) Dizziness Current Visit: Yes Status: Acute Code(s): R42 - DIZZINESS AND GIDDINESS SNOMED Code(s): 713964155 (4) Fibromyalgia Current Visit: No Status: Acute Code(s): M79.7 - FIBROMYALGIA SNOMED Code(s): 060756790 (5) Hypertension Current Visit: No Status: Acute Code(s): I10 - ESSENTIAL (PRIMARY) HYPERTENSION SNOMED Code(s): 37506789 (6) Neuropathy Current Visit: No Status: Acute Code(s): G62.9 - POLYNEUROPATHY, UNSPECIFIED SNOMED Code(s): 501187657 Plan: Pt improved, Echo shows normal LVEF no evidence of PFO. MRI with no acute process and chronic small vessel disease. Pt tolerating aspirin and statin. Cleared by neurology. Anticipate discharge tomorrow
[2019-12-24] MEDS ORDERED: LISINOPRIL 10 MG TAB PO SCH (21:00)
[2019-12-24] MEDS ORDERED: AMITRIPTYLINE HCL 10 MG TAB PO SCH (21:00)
[2019-12-24 22:23] VITALS: PULSE 63
[2019-12-25] MEDS: LEVOTHYROXINE 125 MCG TAB PO SCH (06:14)
[2019-12-25] MEDS: ASPIRIN 325 MG TAB PO SCH (09:08)
[2019-12-25] MEDS: ALPRAZolam 0.5 MG TAB PO SCH (09:08)
[2019-12-25] MEDS: DOCUSATE 100 MG CAP PO SCH ×2 (09:08→18:08)
[2019-12-25] MEDS: METOPROLOL SUCCINATE (ER) 25 MG TAB.ER.24H PO SCH (09:08)
[2019-12-25] MEDS: ATORVASTATIN 40 MG TAB PO SCH (09:08)
--- NOTE | 2019-12-25 17:24 | P.PN ---
Subjective Progress Note Date: 12/25/19 Patient feels fine. All symptoms resolved. She walked well. Patient states that she has developed some muscle aching from Lipitor. Her primary physician is planning to switch from Lipitor to Crestor. Objective - Vital Signs Vital signs: Vital Signs Temp 97.8 F 12/25/19 12:00 Pulse 63 12/25/19 12:00 Resp 16 12/25/19 12:00 BP 126/74 12/25/19 12:00 Pulse Ox 96 12/25/19 12:00 Intake & Output 12/24/19 12/25/19 12/25/19 18:59 06:59 18:59 Intake Total 680 300 942 Balance 680 300 942 Weight 102.5 kg Intake: Oral 680 300 942 Other: # Voids 2 3 1 - Exam Normal, nonfocal. - Labs CBC & Chem 7: 12/23/19 06:00 12/23/19 06:00 Assessment and Plan Assessment: * Probable TIA manifesting with numbness of the right arm and leg, slight gait imbalance and dizziness. Symptoms resolved in about 4-5 hours. * Hypertension * Hyperlipidemia * Obesity. Plan: * MRI of the brain negative for acute CVA. Current NIH stroke scale is 0. * 2-D echo with bubble study showed mild concentric LVH. Left ventricle systolic function is low normal with EF between 50-55%. Normal left atrial size. Contrast study was performed with 2 IV injections of 8 mL of agitated normal saline at rest and with cough. No PFO noted. Interatrial and interventricular septum intact. Mild aortic valve sclerosis. * Fasting a.m. lipid panel revealed total cholesterol 280, LDL 191, HDL 57 and triglycerides 161. Hemoglobin A1c 5.5. B12 496, folate 18.4, TSH is mildly decreased 0.388. * Telemetry monitoring showing sinus rhythm, sinus bradycardia. * Continue aspirin 325 mg and Lipitor 40 mg. May lower aspirin dose to 81 mg daily after discharge. Discussed with the patient. * Neurologically clear for discharge.
--- NOTE | 2019-12-26 14:20 | P.DS ---
Providers Date of admission: 12/23/19 07:06 Expected date of discharge: 12/25/19 Attending physician: John Martin MD Consults: 12/23/19 07:07 Consult Physician Routine Consulting Provider: Sabi Aguilar Consult Reason/Comments: TIA vs ischemic stroke Do you want consulting provider notified?: Yes Primary care physician: Yani Roth [place] [facility] Course: Final Diagnoses: (1) Numbness and tingling of right arm and leg, probable TIA, symptoms resolved Current Visit: Yes Status: Acute Code(s): R20.0 - ANESTHESIA OF SKIN; R20.2 - PARESTHESIA OF SKIN SNOMED Code(s): 73684198 (2) Generalized anxiety disorder Current Visit: Yes Status: Acute Code(s): F41.1 - GENERALIZED ANXIETY DISORDER SNOMED Code(s): 30622458 (3) Dizziness Current Visit: Yes Status: Acute Code(s): R42 - DIZZINESS AND GIDDINESS SNOMED Code(s): 868042510 (4) Fibromyalgia Current Visit: No Status: Acute Code(s): M79.7 - FIBROMYALGIA SNOMED Code(s): 499466168 (5) Hypertension Current Visit: No Status: Acute Code(s): I10 - ESSENTIAL (PRIMARY) HYPERTENSION SNOMED Code(s): 42153914 (6) Neuropathy Current Visit: No Status: Acute Code(s): G62.9 - POLYNEUROPATHY, UNSPECIFIED SNOMED Code(s): 680378291 (7) morbid obesity, BMI 44.1 Hospital course:Mckenna Johnson is a 69 yo F with PMH of HTN, bladder cancer, postherpetic neuralgia, NICOLA who presented to the ED complaining of R sided tingling this morning. She states she was unable to sleep and around 4 am was in the kitchen when she felt numbness first in her R leg, then R arm with lightheadedness. When these symptoms persisted she called EMS and came to the ED. She notes she has seen neurology in the past due to chronic neuropathic pain and was told she has small vessel disease on imaging. On presentation she was hypertensive, labs normal, CT brain no acute process, CTA unremarkable. She feels her symptoms are significantly improved at this time. Evaluated by neurology.labs show HLD. Maintained on aspirin and statin. Complained of muscle achiness,changed Lipitor to Crestor at discharge .Echo shows normal LVEF no evidence of PFO. MRI with no acute process and chronic small vessel disease. Symptoms resolved. Significant clinical improvement. Patient will be discharged home pending final DC recommendations, clearance from neurology. The impression and plan of care has been dictated as directed. : I performed a history and examination of this patient, discussed the same with the dictator. I agree with the dictator's note ,documented as a scribe. Any additional findings or plans will be noted. Patient Condition at Discharge: Stable Plan - Discharge Summary Discharge Rx Participant: No New Discharge Prescriptions: New Rosuvastatin Calcium [Crestor] 20 mg PO DAILY #30 tab Aspirin EC [Ecotrin Low Dose] 81 mg PO DAILY #30 tablet.dr Oneal Sertraline [Zoloft] 200 mg PO W/SUPPER Levothyroxine Sodium [Synthroid] 125 mcg PO DAILY Ubidecarenone [Coq-10] 200 mg PO DAILY Fish Oil/Dha/Epa [Fish Oil 1,200 mg Fish Oil] 1 cap PO DAILY Vitamin D3 Drops 1 drop PO DAILY ALPRAZolam [Xanax] 0.5 mg PO W/SUPPER Amitriptyline HCl [Elavil] 10 - 20 mg PO HS Metoprolol Succinate [Toprol XL] 25 mg PO DAILY Nystatin 100,000 Unit/gm Powd [Mycostatin Powder] 1 applic TOPICAL BID Ramipril [Altace] 2.5 mg PO HS L.acidoph,Paracasei, B.lactis [Probiotic] 1 cap PO DAILY Discharge Medication List Fish Oil/Dha/Epa [Fish Oil 1,200 mg Fish Oil] 1 cap PO DAILY 02/12/14 [History] Levothyroxine Sodium [Synthroid] 125 mcg PO DAILY 02/12/14 [History] Sertraline [Zoloft] 200 mg PO W/SUPPER 02/12/14 [History] Ubidecarenone [Coq-10] 200 mg PO DAILY 02/12/14 [History] Vitamin D3 Drops 1 drop PO DAILY 08/08/14 [History] ALPRAZolam [Xanax] 0.5 mg PO W/SUPPER 12/23/19 [History] Amitriptyline HCl [Elavil] 10 - 20 mg PO HS 12/23/19 [History] L.acidoph,Paracasei, B.lactis [Probiotic] 1 cap PO DAILY 12/23/19 [History] Metoprolol Succinate [Toprol XL] 25 mg PO DAILY 12/23/19 [History] Nystatin 100,000 Unit/gm Powd [Mycostatin Powder] 1 applic TOPICAL BID 12/23/19 [History] Ramipril [Altace] 2.5 mg PO HS 12/23/19 [History] Aspirin EC [Ecotrin Low Dose] 81 mg PO DAILY #30 tablet. 12/25/19 [Rx] Rosuvastatin Calcium [Crestor] 20 mg PO DAILY #30 tab 12/25/19 [Rx] Follow up Appointment(s)/Referral(s): Wenceslao Yun DO [STAFF PHYSICIAN] - 2 Weeks (Pt call office for appointment, as office is closed at time of discharge.) Yani Roth DO [Primary Care Provider] - 3 Days (Pt call office for appointment, as office is closed at time of discharge.) Patient Instructions/Handouts: Transient Ischemic Attack (DC) Discharge Disposition: HOME SELF-CARE
[2019-12-27 07:49] VITALS: BP 126/74; TEMP 97.8
== END 2019-12-25 19:35 | disposition home or self-care (01) ==
LOC: EC 05:15 → 3SCARD 07:06
PROVIDERS: ADMIT Family Medicine; ATTEND Family Medicine
DX: R20.0 Anesthesia of skin (principal); R42 Dizziness and giddiness; R20.2 Paresthesia of skin; F41.1 Generalized anxiety disorder; Z03.818 Encounter for observation for suspected exposure to other biological agents ruled out; E03.9 Hypothyroidism, unspecified; I44.7 Left bundle-branch block, unspecified; I73.9 Peripheral vascular disease, unspecified; E16.2 Hypoglycemia, unspecified; M79.7 Fibromyalgia; E78.5 Hyperlipidemia, unspecified; M19.90 Unspecified osteoarthritis, unspecified site; K21.9 Gastro-esophageal reflux disease without esophagitis; I35.0 Nonrheumatic aortic (valve) stenosis; I10 Essential (primary) hypertension; B02.29 Other postherpetic nervous system involvement; R32 Unspecified urinary incontinence; K44.9 Diaphragmatic hernia without obstruction or gangrene; I83.90 Asymptomatic varicose veins of unspecified lower extremity; F40.240 Claustrophobia; F32.9 Major depressive disorder, single episode, unspecified; G62.9 Polyneuropathy, unspecified; E66.01 Morbid (severe) obesity due to excess calories; Z68.41 Body mass index [BMI] 40.0-44.9, adult; Z79.890 Hormone replacement therapy; Z79.899 Other long term (current) drug therapy; Z88.1 Allergy status to other antibiotic agents; Z91.040 Latex allergy status; Z88.0 Allergy status to penicillin; Z91.048 Other nonmedicinal substance allergy status; Z85.51 Personal history of malignant neoplasm of bladder; Z87.01 Personal history of pneumonia (recurrent); Z90.49 Acquired absence of other specified parts of digestive tract; Z90.710 Acquired absence of both cervix and uterus; Z86.14 Personal history of Methicillin resistant Staphylococcus aureus infection; Z86.73 Personal history of transient ischemic attack (TIA), and cerebral infarction without residual deficits; Z80.0 Family history of malignant neoplasm of digestive organs; Z83.3 Family history of diabetes mellitus; Z83.49 Family history of other endocrine, nutritional and metabolic diseases
CPT/HCPCS: 99285; 36415; 93005; 93306; 97161; 97535; 97165; 92523; 84439; 80061; 80053; 84443; 82607; 82746; 84484; 85025; 85610; 85730; 83036; 71045; 70496; 70450; 70498; 70551; G0378 ×3; U0003; Q9967

== ENCOUNTER → 2021-05-10 | Outpatient (CLI) | payer MEDICARE, OTHER ==
--- NOTE | 2021-05-10 22:14 | CT ---
EXAMINATION TYPE: CT abdomen pelvis w con DATE OF EXAM: 05/10/2021 HISTORY: H/O BLADDER CA CT DLP: 1712mGycm Automated Exposure Control for Dose Reduction was Utilized. CONTRAST: CT scan of the abdomen and pelvis is performed with IV Contrast, patient injected with 100 mL of Isov ue 300. COMPARISON: CT abdomen and pelvis February 22, 2018 FINDINGS: LUNG BASES: No significant abnormality is appreciated. LIVER/GB: No significant abnormality is appreciated. PANCREAS: No significant abnormality is seen. SPLEEN: No significant abnormality is seen. ADRENALS: No significant abnormality is seen. KIDNEYS: Symmetric cortical uptake and excretion without concerning renal mass or hydronephrosis seen bilaterally. Asymmetric diminished size and cortical thinning to the left kidney with 2 mm nonobstru cting calculus lower pole level axial image 31 redemonstrated. Bladder shows no intraluminal calculus or suspicious mass on current study. BOWEL: Oral contrast on the current study reaches level of the splenic flexure. No suspicious small o r large bowel dilatation. Terminal ileum appears within normal limits. Diverticula in the sigmoid col on are present. No CT evidence for acute diverticulitis. UTERUS/ADNEXA: Uterus surgically absent similar to prior. Scattered small pelvic phleboliths bilatera lly. LYMPH NODES: No greater than 1cm abdominal or pelvic lymph nodes are appreciated. OSSEOUS STRUCTURES: Facet arthropathy lower lumbar spine. Multilevel spinous process hypertrophy lumb ar spine.. OTHER: Moderate atherosclerotic calcification. IMPRESSION: No suspicious mass or adenopathy to suggest neoplastic recurrence. No significant change from prior CT.
== END | disposition home or self-care (01) ==
LOC: RADCTMAIN 15:34
PROVIDERS: ATTEND Internal Medicine Hematology & Oncology
DX: Z03.89 Encounter for observation for other suspected diseases and conditions ruled out (principal); Z85.51 Personal history of malignant neoplasm of bladder
CPT/HCPCS: 82565; 84520; 74177; 36415; Q9967

== ENCOUNTER → 2021-12-06 | Outpatient (CLI) | payer MEDICARE, OTHER ==
--- NOTE | 2021-12-07 13:57 | MM ---
Reason for Exam: Screening (asymptomatic). Last mammogram was performed 5 year(s) and 10 month(s) ago. Patient History: Menarche at age 15. Patient has no children. Left ovary removed at age 61. Right ovary removed at age 61. Hysterectomy at age 61. Postmenopausal. Previous chemotherapy. Risk Values: Malou 5 year model risk: 1.9%. NCI Lifetime model risk: 6.2%. Physical Findings: Physical Exam Performed After Images Prior Study Comparison: 12/08/2003 Bilateral Screening Mammogram, [facility]. 03/30/2010 Bilateral Screening Mammogram, [facility]. 01/28/2016 Bilateral Diagnostic Mammogram, [facility]. Tissue Density: There are scattered fibroglandular densities. Findings: Analyzed By CAD. Some mild chronic nodularity is within the right breast, stable. No suspicious groups of microcalcifications, spiculated or lobular masses, architectural distortion or other secondary signs of malignancy are mammographically apparent. Overall Assessment: Benign, BI-RAD 2 Management: Screening Mammogram of both breasts in 1 year. A negative mammogram report should not preclude additional follow up of suspicious palpable abnormalities. Patient should continue monthly self breast exam. A clinical breast exam by your physician is recommended on an annual basis and results should be correlated with mammographic findings. Electronically signed and approved by: Ran Balderrama D.O. Radiologis
--- NOTE | 2021-12-08 09:56 | BD ---
EXAMINATION TYPE: Axial Bone Density DATE OF EXAM: 12/06/2021 COMPARISON: NONE CLINICAL HISTORY: 70 years year old Female. ICD-10 CODE: N95.1 POST MENOPAUSAL SYMPTOMS Height: 57 IN Weight: 233 LBS RISK FACTORS HISTORY OF: Active: LIMITED Diet low in dairy products/other sources of calcium: YES Postmenopausal woman: TOTAL HYST AGE 55 Lost more than 2 inches in height since high school: YES 3" Frequent falls: BALANCE ISSUES Adrenal Insufficiency: YES MEDICATIONS: Thyroid Medications: YES Which medication: Levothyroxine How Lon YEARS Additional Medications: VIT D, MULTI VIT, PROBIOTIC, LEVOTHYROXINE,COQ10, FISH OIL,METOPROLOL, ZOLOFT , XANAX, RAMAPRIL, AMITRIPTALINE, Additional History: BLADDER CANCER WITH CHEMO EXAM MEASUREMENTS: Bone mineral densitometry was performed using the [employer] System. Bone mineral density as measured about the Lumbar spine is: ----- L1-L4(G/cm2): 1.180 T Score Values are as follows: ----- L1: -1.6 ----- L2: -0.7 ----- L3: 0.7 ----- L4: 1.0 ----- L1-L4: 0.0 Bone mineral density BASELINE Bone mineral density about the R hip (g/cm2): 0.825 Bone mineral density about the L hip (g/cm2): 0.784 T Score values are as follows: -----R Neck: -1.5 -----L Neck: -1.8 -----R Total: -0.8 -----L Total: -0.7 Bone mineral density BASELINE FRAX%s: The graph provided illustrates a 8.8 chance for a major osteoporotic fx and a 1.3 chance for the hips probability for fx in 10 years time. IMPRESSION: No evidence for osteoporosis or osteopenia. NOTE: T-SCORE=SD OF THE YOUNG ADULT MEAN.
== END | disposition home or self-care (01) ==
LOC: RADMAMWWP 16:03
PROVIDERS: ATTEND Obstetrics & Gynecology
DX: Z12.31 Encounter for screening mammogram for malignant neoplasm of breast (principal); M85.89 Other specified disorders of bone density and structure, multiple sites; Z78.0 Asymptomatic menopausal state
CPT/HCPCS: 77063; 77067; 77080

== ENCOUNTER → 2022-01-28 | Outpatient (CLI) | payer MEDICARE, OTHER ==
--- NOTE | 2022-01-31 07:48 | USB ---
Reason for Exam: Clinical finding. Patient History: Menarche at age 15. Patient has no children. Left ovary removed at age 61. Right ovary removed at age 61. Hysterectomy at age 61. Postmenopausal. Previous chemotherapy. Risk Values: Malou 5 year model risk: 1.9%. NCI Lifetime model risk: 5.9%. Prior Study Comparison: 03/30/2010 Bilateral Screening Mammogram, [facility]. 01/28/2016 Bilateral Diagnostic Mammogram, [facility]. 12/06/2021 Bilateral MG 3D screening mammo w/cad, [facility]. Findings: The whole breast of the left breast, the axilla of the left breast and the retroareolar of the left breast were scanned. No solid or cystic masses are identified. Overall Assessment: Negative, BI-RAD 1 Management: Return to routine follow-up (next follow-up: 12/06/2022 for Screening Mammogram) A clinical breast exam by your physician is recommended on an annual basis and results should be correlated with mammographic findings. Electronically signed and approved by: Samuel Mazariegos M.D. Radiologis
== END | disposition home or self-care (01) ==
LOC: RADUSWWP 15:09
PROVIDERS: ATTEND Obstetrics & Gynecology
DX: N64.4 Mastodynia (principal); Z78.0 Asymptomatic menopausal state

== ENCOUNTER 2022-06-15 11:40 | Emergency (ER) | payer MEDICARE, OTHER ==
--- NOTE | 2022-06-15 12:49 | US ---
EXAMINATION TYPE: US venous doppler duplex LE RT DATE OF EXAM: 06/15/2022 12:32 PM COMPARISON: NONE CLINICAL HISTORY: post surgery swelling to rt lower extremity. SIDE PERFORMED: TECHNIQUE: The lower extremity deep venous system is examined utilizing real time linear array sonog yoly with graded compression, doppler sonography and color-flow sonography. VESSELS IMAGED: Common Femoral Vein Deep Femoral Vein Greater Saphenous Vein * Femoral Vein Popliteal Vein Small Saphenous Vein * Proximal Calf Veins (* superficial vessels) Right Leg: Negative for DVT IMPRESSION: 1. Right lower extremity ultrasound negative for deep venous thrombosis.
--- NOTE | 2022-06-15 14:46 | XR ---
EXAMINATION TYPE: XR knee complete RT DATE OF EXAM: 06/15/2022 2:20 PM INDICATION: Patient age:Female; 71 years old; Reason for study: pain, redness, swelling, knee replacement on 05/19; COMPARISON: 06/24/2017 TECHNIQUE: The Right knee(s) was examined in Frontal, lateral and oblique projections. FINDINGS: Status post right total knee arthroplasty changes with hardware in appropriate alignment and intact. No evidence of fracture. No evidence of osseous erosion or subcutaneous lucencies. IMPRESSION: Status post total knee arthroplasty changes with hardware intact and appropriate alignment. No fractu res identified.
[2022-06-15 14:56] LABS: Basophils % (A) 0 %; Eosinophils # (A) 0.3 k/uL (0-0.7); Eosinophils % (A) 5 %; HCT 33.4 % (34.0-46.0); HGB 11.4 gm/dL (11.4-16.0); Hypochromasia Slight; Lymphocytes # (A) 1.1 k/uL (1.0-4.8); Lymphocytes % (A) 20 %; Mean Platelet Volume 7.7; Monocytes # (A) 0.2 k/uL (0-1.0); Monocytes % (A) 4 %; Neutrophils # (A) 3.8 k/uL (1.3-7.7); Neutrophils % (A) 70 %; Platelet Count 187 k/uL (150-450); Poikilocytosis Slight; RBC 3.67 m/uL (3.80-5.40); RDW 15.9 % (11.5-15.5); WBC 5.4 k/uL (3.8-10.6)
[2022-06-15 15:08] LABS: ALT 19 U/L (4-34); AST 27 U/L (14-36); African American GFR (CKD) >90 (>60 ml/min/1.73 sqM); Albumin 4.2 g/dL (3.5-5.0); Alkaline Phosphatase 120 U/L (38-126); Anion Gap 9 mmol/L; Blood Urea Nitrogen 23 mg/dL (7-17); C Reactive Protein 0.6 mg/dL (<1.0); Calcium 8.6 mg/dL (8.4-10.2); Carbon Dioxide 24 mmol/L (22-30); Chloride 108 mmol/L (98-107); Glucose 128 mg/dL (74-99); Non-African American GFR(CKD) 88 (>60 ml/min/1.73 sqM); Potassium 4.6 mmol/L (3.5-5.1); Sodium 141 mmol/L (137-145); Total Bilirubin 0.4 mg/dL (0.2-1.3); Total Protein 7.1 g/dL (6.3-8.2)
[2022-06-15] MEDS ORDERED: cefTRIAXone IN SWFI 1,000 MG/10 ML SYRINGE IVP STA (15:55)
[2022-06-15 16:11] LABS: Erythrocyte Sedimentation Rate 47 mm/hr (0-20)
--- NOTE | 2022-06-15 16:23 | ED ---
Extremity Problem HPI - General Chief complaint: Extremity Problem,Nontraumatic Stated complaint: poss DVT Time Seen by Provider: 06/15/22 13:50 Source: patient, family Mode of arrival: wheelchair Limitations: no limitations - History of Present Illness Initial comments: Patient is a 71-year-old female who presents to the emergency department for evaluation of right leg pain and swelling. Patient had a total knee replacement on 05/19/22. She was at physical therapy today when they noticed increased redness and swelling of the right lower extremity. Patient had increased knee and calf pain and was sent to the emergency department due to concern for DVT. She denies fever, chills, nausea, vomiting, chest pain or shortness of breath. Denies history of DVT and PE. Past family history of DVT and PE. She does not take blood thinners. She denies past and current use of tobacco. She denies recent airplane travel and long car rides. - Related Data Home Medications Medication Instructions Recorded Confirmed Fish Oil/Dha/Epa [Fish Oil 1,200 1 cap PO DAILY 02/12/14 12/23/19 mg Fish Oil] Levothyroxine Sodium [Synthroid] 125 mcg PO DAILY 02/12/14 12/23/19 Sertraline [Zoloft] 200 mg PO W/SUPPER 02/12/14 12/23/19 Ubidecarenone [Coq-10] 200 mg PO DAILY 02/12/14 12/23/19 Vitamin D3 Drops 1 drop PO DAILY 08/08/14 12/23/19 ALPRAZolam [Xanax] 0.5 mg PO W/SUPPER 12/23/19 12/23/19 Amitriptyline HCl [Elavil] 10 - 20 mg PO HS 12/23/19 12/23/19 L.acidoph,Paracasei, B.lactis 1 cap PO DAILY 12/23/19 12/23/19 [Probiotic] Metoprolol Succinate [Toprol XL] 25 mg PO DAILY 12/23/19 12/23/19 Nystatin 100,000 Unit/gm Powd 1 applic TOPICAL BID 12/23/19 12/23/19 [Mycostatin Powder] ramipriL [Altace] 2.5 mg PO HS 12/23/19 12/23/19 Previous Rx's Medication Instructions Recorded Aspirin EC [Ecotrin Low Dose] 81 mg PO DAILY #30 tablet. 12/25/19 Rosuvastatin Calcium [Crestor] 20 mg PO DAILY #30 tab 12/25/19 Cephalexin [Keflex] 500 mg PO Q6HR #40 cap 06/15/22 Sulfamethox-Tmp 800-160Mg [Bactrim 1 each PO Q12HR #20 tab 06/15/22 Ds] Allergies Allergy/AdvReac Type Severity Reaction Status Date / Time ampicillin AdvReac Flu Verified 12/23/19 07:28 symptoms ciprofloxacin [From Cipro] AdvReac Unknown Verified 06/15/22 11:57 clindamycin AdvReac Rash/Hives Verified 12/23/19 07:28 latex AdvReac Rash/Hives Verified 12/23/19 07:28 Tetracyclines AdvReac Nausea & Verified 12/23/19 07:28 Vomiting,diarrhea dial soap AdvReac Itching Uncoded 12/23/19 07:28 Review of Systems ROS Statement: Those systems with pertinent positive or pertinent negative responses have been documented in the HPI. ROS Other: All systems not noted in ROS Statement are negative. Past Medical History Past Medical History: Cancer, Fibromyalgia, GERD/Reflux, Hyperlipidemia, Hypertension, Osteoarthritis (OA), Pneumonia, Skin Disorder, Sleep Apnea/CPAP/BIPAP, Thyroid Disorder Additional Past Medical History / Comment(s): stage 2 Bladder cancer , Heart "Flutter" and palpitations, "spastic angina", varicose veins, hiatal hernia, reddness in arms and legs, hypoglycemia, urinary incontinence, vertigo History of Any Multi-Drug Resistant Organisms: MRSA Date of last positivie culture/infection: 11/2015 MDRO Source:: abdominal fold and nose Past Surgical History: Adenoidectomy, Appendectomy, Bladder Surgery, Hysterectomy, Joint Replacement, Orthopedic Surgery, Tonsillectomy Additional Past Surgical History / Comment(s): D&C's, CARPAL TUNNEL GERALDINE, tumor removed from bladder, Past Anesthesia/Blood Transfusion Reactions: Motion Sickness, Postoperative Nausea & Vomiting (PONV) Additional Past Anesthesia/Blood Transfusion Reaction / Comment(s): CLAUSTROPHOBIA Past Psychological History: Anxiety, Depression Past Alcohol Use History: None Reported Past Drug Use History: None Reported - Past Family History Father Family Medical History: Cancer Additional Family Medical History / Comment(s): colon Mother Family Medical History: Diabetes Mellitus, Thyroid Disorder General Exam Limitations: no limitations General appearance: alert, in no apparent distress Head exam: Present: atraumatic, normocephalic, normal inspection Respiratory exam: Present: normal lung sounds bilaterally. Absent: respiratory distress, wheezes, rales, rhonchi, stridor Cardiovascular Exam: Present: regular rate, normal rhythm, normal heart sounds. Absent: systolic murmur, diastolic murmur, rubs, gallop, clicks Extremities exam: Present: other (Mild erythema, swelling, and warmth to right knee and proximal lower leg. Blanching present. Knee replacement incision h ealed without drainage. Full range of motion of the knee without significant pain) Neurological exam: Present: alert, oriented X3, CN II-XII intact Psychiatric exam: Present: normal affect, normal mood Skin exam: Present: warm, dry, intact. Absent: rash Course Vital Signs 06/15/22 06/15/22 11:51 16:48 Temperature 97.7 F 98.4 F Pulse Rate 76 73 Respiratory 20 16 Rate Blood Pressure 141/92 136/92 O2 Sat by Pulse 100 100 Oximetry Medical Decision Making - Medical Decision Making Was pt. sent in by a medical professional or institution? Yes, patient sent in by physical therapy office Did you speak to anyone other than the patient for history? No Did you review nursing and triage notes? Yes, symptoms consistent with nursing and triage notes. Were old charts reviewed? Yes Differential Diagnosis? Cellulitis, septic joint, DVT EKG interpreted by me (3pts min.)? NA X-rays interpreted by me (1pt min.)? Yes, proper alignment of hardware without bony abnormality or other acute process CT interpreted by me (1pt min.)? NA U/S interpreted by me (1pt. min.)? No. Ultrasound with doppler report of right lower extremity negative for DVT What testing was considered but not performed? (CT, X-rays, U/S, labs)? Why? NA What meds were considered but not given? Why? I consider giving pain meds however patient declined Did you discuss the management of the patient with other professionals? No Did you reconcile home meds? No, patient discharged. Was smoking cessation discussed for >3mins.? No Was critical care preformed (if so, how long)? No Were there social determinants of health that impacted care today? How? (Homelessness, low income, unemployed, alcoholism, drug addiction, transportation, low edu. Level, literacy, decrease access to med. care, group home, rehab)? No Was there de-escalation of care discussed even if they declined? (Discuss DNR or withdrawal of care, Hospice)? No What co-morbidities impacted this encounter? (DM, HTN, Smoking, COPD, CAD, Canc er, CVA, Hep., AIDS, mental health diagnosis, sleep apnea, morbid obesity)? Hyperlipidemia, hypertension, obesity, recent knee replacement Was patient admitted / discharged? This is a 71-year-old female presenting with right leg pain and swelling. Afebrile. Symptoms and physical exam not consistent with a septic joint. No leukocytosis. No evidence of acute DVT. I suspect symptoms related to early cellulitis. Patient treated with Rocephin in the emergency department. She is well-appearing, no systemic symptoms or signs-she is in stable medical condition for discharge with Keflex and Bactrim. Return parameters discussed. Undiagnosed new problem with uncertain prognosis? No Drug Therapy requiring intensive monitoring for toxicity (Heparin, Nitro, Insulin, Cardizem)? No Were any procedures done? No Diagnosis/symptom? cellulitis Acute, or Chronic, or Acute on Chronic? acute Uncomplicated (without systemic symptoms) or Complicated (systemic symptoms)? uncomplicated Side effects of treatment? no Exacerbation, Progression, or Severe Exacerbation] NA Poses a threat to life or bodily function? No Dr. Simpson is my attending. - Lab Data Result diagrams: 06/15/22 14:00 06/15/22 14:00 Lab Results 06/15/22 06/15/22 Range/Units 14:00 14:00 WBC 5.4 (3.8-10.6) k/uL RBC 3.67 L (3.80-5.40) m/uL Hgb 11.4 (11.4-16.0) gm/dL Hct 33.4 L (34.0-46.0) % MCV 91.0 (80.0-100.0) fL MCH 31.0 (25.0-35.0) pg MCHC 34.0 (31.0-37.0) g/dL RDW 15.9 H (11.5-15.5) % Plt Count 187 (150-450) k/uL MPV 7.7 Neutrophils % 70 % Lymphocytes % 20 % Monocytes % 4 % Eosinophils % 5 % Basophils % 0 % Neutrophils # 3.8 (1.3-7.7) k/uL Lymphocytes # 1.1 (1.0-4.8) k/uL Monocytes # 0.2 (0-1.0) k/uL Eosinophils # 0.3 (0-0.7) k/uL Basophils # 0.0 (0-0.2) k/uL Hypochromasia Slight Poikilocytosis Slight ESR 47 H (0-20) mm/hr Sodium 141 (137-145) mmol/L Potassium 4.6 (3.5-5.1) mmol/L Chloride 108 H (98-107) mmol/L Carbon Dioxide 24 (22-30) mmol/L Anion Gap 9 mmol/L BUN 23 H (7-17) mg/dL Creatinine 0.71 (0.52-1.04) mg/dL Est GFR (CKD-EPI)AfAm >90 (>60 ml/min/1.73 sqM) Est GFR (CKD-EPI)NonAf 88 (>60 ml/min/1.73 sqM) Glucose 128 H (74-99) mg/dL Calcium 8.6 (8.4-10.2) mg/dL Total Bilirubin 0.4 (0.2-1.3) mg/dL AST 27 (14-36) U/L ALT 19 (4-34) U/L Alkaline Phosphatase 120 (38-126) U/L C-Reactive Protein 0.6 (<1.0) mg/dL Total Protein 7.1 (6.3-8.2) g/dL Albumin 4.2 (3.5-5.0) g/dL Disposition Clinical Impression: Cellulitis, Leg pain Disposition: HOME SELF-CARE Condition: Good Instructions (If sedation given, give patient instructions): Cellulitis (ED) Additional Instructions: Take antibiotic as directed. Follow-up with primary care provider in 1-2 days. Return to emergency department experience new, concerning, or worsening symptoms. Prescriptions: Sulfamethox-Tmp 800-160Mg [Bactrim Ds] 1 each PO Q12HR #20 tab Cephalexin [Keflex] 500 mg PO Q6HR #40 cap Is patient prescribed a controlled substance at d/c from ED?: No Referrals: John Martin MD [Primary Care Provider] - 1-2 days
[2022-06-15 16:51] VITALS: BP 136/92; PULSE 73; RESP 16; TEMP 98.4
== END 2022-06-15 16:48 | disposition home or self-care (01) ==
LOC: EC 11:40
DX: L03.115 Cellulitis of right lower limb (principal); I10 Essential (primary) hypertension; K21.9 Gastro-esophageal reflux disease without esophagitis; E78.5 Hyperlipidemia, unspecified; M19.90 Unspecified osteoarthritis, unspecified site; G47.30 Sleep apnea, unspecified; E07.9 Disorder of thyroid, unspecified; F41.9 Anxiety disorder, unspecified; F32.A Depression, unspecified; Z79.890 Hormone replacement therapy; Z79.899 Other long term (current) drug therapy; Z88.0 Allergy status to penicillin; Z91.040 Latex allergy status; Z91.09 Other allergy status, other than to drugs and biological substances; Z88.1 Allergy status to other antibiotic agents
CPT/HCPCS: 36415; 80053; 85652; 85025; 86140; 87040; 73562; 93971; 99284; 96374; J0696

== ENCOUNTER 2022-06-17 23:27 | Emergency (ER) | payer MEDICARE, OTHER ==
[2022-06-17 23:32] VITALS: BP 136/83; PULSE 78; RESP 18; TEMP 98
--- NOTE | 2022-06-18 03:21 | ED ---
Skin/Abscess/FB HPI - General Chief complaint: Skin/Abscess/Foreign Body Stated complaint: Right leg swelling Time Seen by Provider: 06/18/22 02:28 Source: patient, RN notes reviewed Mode of arrival: wheelchair Limitations: no limitations - History of Present Illness Initial comments: This is a pleasant 71-year-old female with a history of fibromyalgia, hypertension, thyroid disorder, previous bladder cancer. Patient had total right knee replacement a few weeks ago by Dr. Dang. Patient states that she was seen here a few days ago after she was instructed to come in by her physical therapist for possible blood clot. Patient had a venous Doppler which was negative for any blood clot. Patient was put on Keflex for possible cellulitis. Patient presents today stating that she is getting some drainage from the inferior portion of the incision. No purulent drainage, this is mostly a clear slightly yellow fluid. Patient has no fever or chills. Patient does have discoloration and a chronic wound to the anterior aspect of her right lower leg which she states has been there for years. It is unchanged in appearance. No headache, no fever or chills, no changes in vision or hearing, no sore throat or difficulty with speech, no neck pain, no chest pain or shortness of breath, no abdominal pain, no nausea or vomiting, no changes in urination or bowel movements, no numbness or tingling, no extremity pain, no skin rashes or lesions. Past medical, surgical, social, and family history reviewed. - Related Data Home Medications Medication Instructions Recorded Confirmed Fish Oil/Dha/Epa [Fish Oil 1,200 1 cap PO DAILY 02/12/14 12/23/19 mg Fish Oil] Levothyroxine Sodium [Synthroid] 125 mcg PO DAILY 02/12/14 12/23/19 Sertraline [Zoloft] 200 mg PO W/SUPPER 02/12/14 12/23/19 Ubidecarenone [Coq-10] 200 mg PO DAILY 02/12/14 12/23/19 Vitamin D3 Drops 1 drop PO DAILY 08/08/14 12/23/19 ALPRAZolam [Xanax] 0.5 mg PO W/SUPPER 12/23/19 12/23/19 Amitriptyline HCl [Elavil] 10 - 20 mg PO HS 12/23/19 12/23/19 L.acidoph,Paracasei, B.lactis 1 cap PO DAILY 12/23/19 12/23/19 [Probiotic] Metoprolol Succinate [Toprol XL] 25 mg PO DAILY 12/23/19 12/23/19 Nystatin 100,000 Unit/gm Powd 1 applic TOPICAL BID 12/23/19 12/23/19 [Mycostatin Powder] ramipriL [Altace] 2.5 mg PO HS 12/23/19 12/23/19 Previous Rx's Medication Instructions Recorded Aspirin EC [Ecotrin Low Dose] 81 mg PO DAILY #30 tablet. 12/25/19 Rosuvastatin Calcium [Crestor] 20 mg PO DAILY #30 tab 12/25/19 Cephalexin [Keflex] 500 mg PO Q6HR #40 cap 06/15/22 Sulfamethox-Tmp 800-160Mg [Bactrim 1 each PO Q12HR #20 tab 06/15/22 Ds] Allergies Allergy/AdvReac Type Severity Reaction Status Date / Time ampicillin AdvReac Flu Verified 06/17/22 23:32 symptoms ciprofloxacin [From Cipro] AdvReac Unknown Verified 06/17/22 23:32 clindamycin AdvReac Rash/Hives Verified 06/17/22 23:32 latex AdvReac Rash/Hives Verified 06/17/22 23:32 Tetracyclines AdvReac Nausea & Verified 06/17/22 23:32 Vomiting,diarrhea dial soap AdvReac Itching Uncoded 06/17/22 23:32 Review of Systems ROS Statement: Those systems with pertinent positive or pertinent negative responses have been documented in the HPI. ROS Other: All systems not noted in ROS Statement are negative. Past Medical History Past Medical History: Cancer, Fibromyalgia, GERD/Reflux, Hyperlipidemia, Hypertension, Osteoarthritis (OA), Pneumonia, Skin Disorder, Sleep Apnea/CPAP/BIPAP, Thyroid Disorder Additional Past Medical History / Comment(s): stage 2 Bladder cancer , Heart "Flutter" and palpitations, "spastic angina", varicose veins, hiatal hernia, reddness in arms and legs, hypoglycemia, urinary incontinence, vertigo History of Any Multi-Drug Resistant Organisms: MRSA Date of last positivie culture/infection: 11/2015 MDRO Source:: abdominal fold and nose Past Surgical History: Adenoidectomy, Appendectomy, Bladder Surgery, Hysterectomy, Joint Replacement, Orthopedic Surgery, Tonsillectomy Additional Past Surgical History / Comment(s): D&C's, CARPAL TUNNEL GERALDINE, tumor removed from bladder, Past Anesthesia/Blood Transfusion Reactions: Motion Sickness, Postoperative Nausea & Vomiting (PONV) Additional Past Anesthesia/Blood Transfusion Reaction / Comment(s): CLAUSTROPHOBIA Past Psychological History: Anxiety, Depression Smoking Status: Never smoker Past Alcohol Use History: None Reported Past Drug Use History: None Reported - Past Family History Father Family Medical History: Cancer Additional Family Medical History / Comment(s): colon Mother Family Medical History: Diabetes Mellitus, Thyroid Disorder General Exam - General Exam Comments Initial Comments: Patient does not appear to be ill or toxic. Patient appears adequately hydrated. Limitations: no limitations General appearance: obese Head exam: Present: atraumatic, normocephalic, normal inspection Eye exam: Present: normal appearance, PERRL, EOMI. Absent: scleral icterus, conjunctival injection, periorbital swelling ENT exam: Present: normal exam, mucous membranes moist, normal external ear exam Neck exam: Present: normal inspection, full ROM. Absent: tenderness, meningismus, lymphadenopathy Respiratory exam: Present: normal lung sounds bilaterally. Absent: respiratory distress, wheezes, rales, rhonchi, stridor, chest wall tenderness, accessory muscle use, decreased breath sounds, prolonged expiratory Cardiovascular Exam: Present: regular rate, normal rhythm, normal heart sounds. Absent: systolic murmur, diastolic murmur, rubs, gallop, clicks GI/Abdominal exam: Present: soft, normal bowel sounds. Absent: distended, tenderness, guarding, rebound, rigid Extremities exam: Present: normal inspection, normal capillary refill, pedal edema (Scant edema involving the bilateral lower extremities.), other (Chronic appearing wound to the anterior aspect of the right lower leg.). Absent: tenderness, joint swelling, calf tenderness Right Knee exam: Present: swelling (Minimal). Absent: normal inspection (Vertical surgical incision with mild dehiscence in the interim. Portion of the wound draining small amount of clear yellow fluid. No significant erythema.), full ROM (Limited range of motion due to recent surgery, however range of motion is adequate considering the recent surgery.), tenderness, abrasion, laceration, ecchymosis, deformity, dislocation, erythema, effusion Lower Leg exam: Present: swelling (Scant bilateral). Absent: normal inspection (Patient has an erythematous, chronic-appearing discoloration to the anterior aspect of the right lower leg.), tenderness, abrasion Ankle exam: Present: normal inspection, full ROM. Absent: tenderness Foot/Toe exam: Present: normal inspection, full ROM. Absent: tenderness Neurovascular tendon exam: Present: no vascular compromise. Absent: pulse deficit, abnormal cap refill, motor deficit, sensory deficit, tendon deficit, extremity cold to touch, pallor, decreased fine/light touch, foot drop Back exam: Present: normal inspection Neurological exam: Present: alert, oriented X3, CN II-XII intact Psychiatric exam: Present: normal affect, normal mood Skin exam: Present: warm, dry, intact, normal color. Absent: rash Course Vital Signs 06/17/22 23:30 Temperature 98 F Pulse Rate 78 Respiratory 18 Rate Blood Pressure 136/83 O2 Sat by Pulse 100 Oximetry Medical Decision Making - Medical Decision Making Was pt. sent in by a medical professional or institution? @ -no Did you speak to anyone other than the patient for history? @ - Did you review nursing and triage notes? @ -[Agree] Were old charts reviewed? @ -Records from previous visit reviewed Differential Diagnosis? @ -Differential diagnosis, worsening cellulitis, wound dehiscence, postsurgical seroma with drainage and dehiscence. DVT, other vascular etiology, compartment syndrome, this is not a conclusive list. EKG interpreted by me (3pts min.)? @ -[none] X-rays interpreted by me (1pt min.)? @ -[none] CT interpreted by me (1pt min.)? @ -[none] U/S interpreted by me (1pt. min.)? @ -[none] What testing was considered but not performed? (CT, X-rays, U/S, labs)? Why? @ [I did consider repeat imaging of the patient to include plain film x-rays of the right knee, tibia/fibular area as well as repeating the venous Doppler. However the patient just had the studies 2 days ago. I do not believe repeating these studies are indicated at this time.] What meds were considered but not given? Why? @ -I did consider switching the antibiotic however I do not believe this is an infectious process. We will continue the cephalexin for now Did you discuss the management of the patient with other professionals? @ -ED attending physician Did you reconcile home meds? @ -. Review did not reconciled Was smoking cessation discussed for >3mins.? @ -[none] Was critical care preformed (if so, how long)? @ -[none] Were there social determinants of health that impacted care today? How? (Homelessness, low income, unemployed, alcoholism, drug addiction, transport ation, low edu. Level, literacy, decrease access to med. care, senior care, rehab)? @ -Patient has mobility issues due to recent surgery. But does have her here. Patient well enough to be discharged. Was there de-escalation of care discussed even if they declined? (Discuss DNR or withdrawal of care, Hospice)? @ -[Discuss DNR or withdrawal of care, Hospice?] What co-morbidities impacted this encounter? (DM, HTN, Smoking, COPD, CAD, Cancer, CVA, Hep., AIDS, mental health diagnosis, sleep apnea, morbid obesity)? @ -Obesity with mobility issues Patient was discharged. I suspect patient has a postsurgical seroma. She had a tiny area of dehiscence, approximately 2 mm to the inferior incision. There was no evidence of cellulitis. Patient's white blood cell count was normal. Patient had no fever. We'll keep the patient on cephalexin. Patient will be instructed to follow-up with her treating surgeon, Dr. Dang. Patient voices understanding of this plan. Patient did have a mildly low sodium at 134. Carbon dioxide 21. Anion gap was normal. Creatinine 0.47. Glucose 149, nonfasting. Lymphocytes were 200. Undetermined significance. Patient voiced understanding of all testing and plan. Also discussed with the patient's . @ -Patient was discharged Undiagnosed new problem with uncertain prognosis? @ -[none] Drug Therapy requiring intensive monitoring for toxicity (Heparin, Nitro, Insulin, Cardizem)? @ -[none] Were any procedures done? @ -[none] Diagnosis/symptom? @ -Right knee wound dehiscence with postsurgical seroma. Acute, or Chronic, or Acute on Chronic? @ -Acute Uncomplicated (without systemic symptoms) or Complicated (systemic symptoms)? @ -Uncomplicated Side effects of treatment? @ -[none] Exacerbation, Progression, or Severe Exacerbation] @ -[no] Poses a threat to life or bodily function? @ -Unlikely Patient was told to return to the ER for any signs or symptoms worsen. Told to return immediately if any other problems arise. All questions answered. Treatment plan discussed. Patient in agreement Every effort has been made to ensure accuracy of this dictation. However, due to the limitations of electronic medical records and dictation devices, errors in charting still occur. The case was discussed in detail with ED attending physician. Presentation, findings, treatment plan discussed in detail. Geospatial Specialist Dr. Garcia - Lab Data Result diagrams: 06/18/22 03:52 06/18/22 03:52 Lab Results 06/18/22 06/18/22 Range/Units 03:52 03:52 WBC 7.3 (3.8-10.6) k/uL RBC 4.38 (3.80-5.40) m/uL Hgb 14.3 (11.4-16.0) gm/dL Hct 41.0 (34.0-46.0) % MCV 93.6 (80.0-100.0) fL MCH 32.5 (25.0-35.0) pg MCHC 34.8 (31.0-37.0) g/dL RDW 12.3 (11.5-15.5) % Plt Count 241 (150-450) k/uL MPV 8.1 Neutrophils % 89 % Lymphocytes % 3 % Monocytes % 6 % Eosinophils % 0 % Basophils % 1 % Neutrophils # 6.5 (1.3-7.7) k/uL Lymphocytes # 0.2 L (1.0-4.8) k/uL Monocytes # 0.4 (0-1.0) k/uL Eosinophils # 0.0 (0-0.7) k/uL Basophils # 0.0 (0-0.2) k/uL Sodium 134 L (137-145) mmol/L Potassium 4.3 (3.5-5.1) mmol/L Chloride 102 (98-107) mmol/L Carbon Dioxide 21 L (22-30) mmol/L Anion Gap 11 mmol/L BUN 9 (7-17) mg/dL Creatinine 0.47 L (0.52-1.04) mg/dL Est GFR (CKD-EPI)AfAm >90 (>60 ml/min/1.73 sqM) Est GFR (CKD-EPI)NonAf >90 (>60 ml/min/1.73 sqM) Glucose 149 H (74-99) mg/dL Calcium 8.9 (8.4-10.2) mg/dL Disposition Clinical Impression: Wound dehiscence, surgical, Seroma after procedure Disposition: HOME SELF-CARE Condition: Good Instructions (If sedation given, give patient instructions): Wound Dehiscence (ED), Seroma (DC) Additional Instructions: Wash the wound daily with warm soap and water. Cover with a thin layer of triple antibiotic ointment or Neosporin. Cover with gauze. Follow-up with your surgeon for reevaluation. Continue the antibiotic, cephalexin as instructed previously. Follow-up with your regular physician as directed. Return to the ER immediately if any symptoms worsen, new symptoms arise, or any other problems develop. Follow-up with Dr. Dang as directed Is patient prescribed a controlled substance at d/c from ED?: No Referrals: John Martin MD [Primary Care Provider] - 1-2 days Mariano Dang MD [REFERRING] - As Soon As Possible Time of Disposition: 04:43
[2022-06-18 04:15] LABS: African American GFR (CKD) >90 (>60 ml/min/1.73 sqM); Anion Gap 11 mmol/L; Blood Urea Nitrogen 9 mg/dL (7-17); Calcium 8.9 mg/dL (8.4-10.2); Carbon Dioxide 21 mmol/L (22-30); Chloride 102 mmol/L (98-107); Glucose 149 mg/dL (74-99); Non-African American GFR(CKD) >90 (>60 ml/min/1.73 sqM); Potassium 4.3 mmol/L (3.5-5.1); Sodium 134 mmol/L (137-145)
[2022-06-18 04:35] LABS: Basophils % (A) 1 %; Eosinophils % (A) 0 %; HGB 14.3 gm/dL (11.4-16.0); Lymphocytes # (A) 0.2 k/uL (1.0-4.8); Lymphocytes % (A) 3 %; MCH 32.5 pg (25.0-35.0); MCHC 34.8 g/dL (31.0-37.0); MCV 93.6 fL (80.0-100.0); Mean Platelet Volume 8.1; Monocytes # (A) 0.4 k/uL (0-1.0); Monocytes % (A) 6 %; Neutrophils # (A) 6.5 k/uL (1.3-7.7); Neutrophils % (A) 89 %; Platelet Count 241 k/uL (150-450); RBC 4.38 m/uL (3.80-5.40); RDW 12.3 % (11.5-15.5); WBC 7.3 k/uL (3.8-10.6)
[2022-06-18] MEDS ORDERED: BACITRACIN OINT 1 EACH PACKET TOPICAL ONE (04:41)
== END 2022-06-18 05:35 | disposition home or self-care (01) ==
LOC: EC 23:27
DX: T81.31XA Disruption of external operation (surgical) wound, not elsewhere classified, initial encounter (principal); L76.34 Postprocedural seroma of skin and subcutaneous tissue following other procedure; K21.9 Gastro-esophageal reflux disease without esophagitis; E78.5 Hyperlipidemia, unspecified; I10 Essential (primary) hypertension; M19.90 Unspecified osteoarthritis, unspecified site; E07.9 Disorder of thyroid, unspecified; F41.9 Anxiety disorder, unspecified; F32.A Depression, unspecified; Z88.0 Allergy status to penicillin; Z88.1 Allergy status to other antibiotic agents; Z91.040 Latex allergy status; Z88.8 Allergy status to other drugs, medicaments and biological substances; Z79.890 Hormone replacement therapy; Z79.899 Other long term (current) drug therapy
CPT/HCPCS: 36415; 80048; 85025; 87070; 87075; 87205; 99283

== ENCOUNTER → 2022-12-06 | Outpatient (CLI) | payer MEDICARE, OTHER ==
[2022-12-07 12:19] LABS: BUN/Creat Ratio 17.78 Ratio (12.00-20.00); Calcium 9.3 mg/dL (8.7-10.3); Carbon Dioxide 26.9 mmol/L (21.6-31.8); Chloride 104 mmol/L (96-109); Glucose 82 mg/dL (70-110); Potassium 4.3 mmol/L (3.5-5.5); Sodium 144 mmol/L (135-145)
== END | disposition home or self-care (01) ==
LOC: LABWHC1 12:19
PROVIDERS: ATTEND Nurse Practitioner Adult Health
DX: R60.0 Localized edema (principal)
CPT/HCPCS: 36415; 80048; 83880

== ENCOUNTER → 2023-01-26 | Outpatient (CLI) | payer MEDICARE, OTHER ==
[2023-01-26 16:59] LABS: African American GFR (CKD) >90 (>60 ml/min/1.73 sqM); Blood Urea Nitrogen 16 mg/dL (7-17); Non-African American GFR(CKD) 86 (>60 ml/min/1.73 sqM)
--- NOTE | 2023-01-27 09:12 | CT ---
EXAMINATION TYPE: CT abdomen pelvis w con DATE OF EXAM: 01/26/2023 COMPARISON: 05/10/2021 INDICATION: abdominal pain, hx of bladder ca DLP: 1929.4 mGycm, Automated exposure control for dose reduction was used. CONTRAST: 100 mL of Isovue 300. Study performed with Oral Contrast TECHNIQUE: Axial images were obtained from above the diaphragm to the pubic rami in the axial plane a t 5 mm thick sections. Reconstructed images are reviewed on the computer in the coronal plane. FINDINGS: Limited CT sections are obtained the lung bases. The lung bases are clear. CT ABDOMEN: Liver: Normal Spleen: Normal Pancreas: Normal Adrenal glands: The adrenal glands are normal. Gallbladder: Normal Kidneys: No masses are evident. No hydronephrosis is present. No cysts are present. Couple of punct ate nonobstructing renal stones in the mid left kidney is not excluded. Aorta: Vascular calcification is within the aorta. Inferior vena cava: Normal. CT PELVIS: Loops of bowel within the abdomen and pelvis are normal. Fecal debris is seen in the colon. There are loops of bowel lacking oral contrast or limited distention limiting their evaluation. Oral contra st extends to the ascending colon. Appendix: Not identified. No dilated tubular structure or inflammatory change is evident. Urinary bladder: Normal. No discrete mass or focal wall thickening evident. Genitourinary structures: Uterus and ovaries are not identified. Osseous structures: No suspicious lytic or sclerotic lesions. Sacroiliac joint degenerative changes a re present. Facet degenerative changes L5-S1 are present. No suspicious adenopathy is evident. IMPRESSIONS: 1. Mild fecal retention. 2. Couple of nonobstructing punctate left renal stones mid kidney are not excluded. 3. No suspicious changes to suggest recurrent or metastatic urinary bladder cancer.
== END | disposition home or self-care (01) ==
LOC: RADCTMAIN 16:01
PROVIDERS: ATTEND Family Medicine
DX: K59.00 Constipation, unspecified (principal); Z85.51 Personal history of malignant neoplasm of bladder
CPT/HCPCS: 82565; 84520; 74177; 36415; Q9967

== ENCOUNTER → 2023-10-03 | Outpatient (CLI) | payer MEDICARE, OTHER ==
[2023-10-03 16:03] VITALS: BP 173/84; PULSE 65; RESP 18; TEMP 98
--- NOTE | 2023-10-03 16:34 | P.SLEEP ---
History of Present Illness H&P Date: 10/03/23 . This is a pleasant 72-year-old female patient was coming in for sleep apnea evaluation and follow-up. I have not seen this patient since 2016. The patient is a case of severe PATRICK with an AHI of 17.9 and the patient has been maintained on CPAP therapy at a pressure of 13 cm of water. Over the years, the patient has remained compliant with CPAP therapy. Her machine is functional. She has a ResMed 10. She is also using an AirFit P10 nasal pillows. Her current pressure is at 15 cm of water. Based on a 30-day compliancy, the patient has utilized the machine on average of 8.4 hours per night and she has achieved more than 4 hours 100% of the time and the leak is in the order of 41 L/min. Despite the excessive leak, her AHI is down to 3.7. Her weight has also remained stable at 131 pounds with a body mass index of 48. The patient has no snoring while on CPAP therapy. She has chronic fatigue and tiredness related to comorbidities. She is currently retired. She is going to bed between 3 and 4 AM and she is getting up between noon and 2 AM and she obviously has a advanced sleep phase syndrome. No predialysis. No hallucinations. No cataplexy. She is not sleeping on her side. Her machine is functional. Her weight is stable. No alcoholism. No substance abuse. Comorbidities are multiple. Despite her comorbidities, the patient has remained compliant with CPAP therapy. Review of Systems Constitutional: Reports fatigue Eyes: denies as per HPI, denies blurred vision, denies bulging eye, denies decreased vision, denies diplopia, denies discharge, denies dry eye, denies irritation, denies itching, denies pain, denies photophobia, denies loss of peripheral vision, denies loss of vision, denies tunnel vision/blind spots Ears: deny: decreased hearing, ear discharge, earache, tinnitus Ears, nose, mouth and throat: Reports as per HPI Breasts: absent: as per HPI, change in shape, gynecomastia, masses, nipple discharge, pain, skin changes, swelling Cardiovascular: Reports as per HPI Respiratory: Reports as per HPI, Reports sleep apnea Gastrointestinal: Reports as per HPI Genitourinary: Reports as per HPI Menstruation: Reports as per HPI Musculoskeletal: Reports as per HPI, Reports limitation of motion, Reports low back pain, Reports myalgias Musculoskeletal: absent: ankle pain, ankle stiffness, ankle swelling, as per HPI, elbow pain, elbow stiffness, elbow swelling, foot pain, foot stiffness, foot swelling, hand pain, hand stiffness, hand swelling, hip pain, hip stiffness, hip swelling, knee pain, knee stiffness, knee swelling, shoulder pa in, shoulder stiffness, shoulder swelling, wrist pain, wrist stiffness, wrist swelling Integumentary: Reports as per HPI Neurological: Reports as per HPI Psychiatric: Reports as per HPI Endocrine: Reports as per HPI, Reports fatigue Hematologic/Lymphatic: Reports as per HPI Allergic/Immunologic: Reports as per HPI Past Medical History Past Medical History: Cancer, Fibromyalgia, GERD/Reflux, Hyperlipidemia, Hypertension, Osteoarthritis (OA), Pneumonia, Skin Disorder, Sleep Apnea/CPAP/BIPAP, Thyroid Disorder Additional Past Medical History / Comment(s): stage 2 Bladder cancer , Heart "Flutter" and palpitations, "spastic angina", varicose veins, hiatal hernia, reddness in arms and legs, hypoglycemia, urinary incontinence, vertigo, angina, TIA, fibromyalgia, bronchitis, acid reflux, , restless legs (until had knee replaced), depression/anxiety History of Any Multi-Drug Resistant Organisms: MRSA Date of last positivie culture/infection: 11/2015 MDRO Source:: abdominal fold and nose Past Surgical History: Adenoidectomy, Appendectomy, Bladder Surgery, Hysterectomy, Joint Replacement, Orthopedic Surgery, Tonsillectomy Additional Past Surgical History / Comment(s): D&C's, CARPAL TUNNEL GERALDINE, tumor removed from bladder, r knee replacement Past Anesthesia/Blood Transfusion Reactions: Motion Sickness, Postoperative Nausea & Vomiting (PONV) Additional Past Anesthesia/Blood Transfusion Reaction / Comment(s): CLAUSTROPHOBIA Past Psychological History: Anxiety, Depression Smoking Status: Never smoker Past Alcohol Use History: None Reported Past Drug Use History: None Reported - Past Family History Father Family Medical History: Cancer Additional Family Medical History / Comment(s): colon Mother Family Medical History: Diabetes Mellitus, Thyroid Disorder Medications and Allergies Home Medications Medication Instructions Recorded Confirmed Type Fish Oil/Dha/Epa [Fish Oil 1,200 1 cap PO DAILY 02/12/14 10/03/23 History mg Fish Oil] Levothyroxine Sodium [Synthroid] 125 mcg PO DAILY 02/12/14 10/03/23 History Sertraline [Zoloft] 200 mg PO W/SUPPER 02/12/14 10/03/23 History Ubidecarenone [Coq-10] 200 mg PO DAILY 02/12/14 10/03/23 History Vitamin D3 Drops 1 drop PO DAILY 08/08/14 10/03/23 History ALPRAZolam [Xanax] 0.5 mg PO W/SUPPER 12/23/19 12/23/19 History Amitriptyline HCl [Elavil] 10 - 20 mg PO HS 12/23/19 12/23/19 History L.acidoph,Paracasei, B.lactis 1 cap PO DAILY 12/23/19 10/03/23 History [Probiotic] Metoprolol Succinate [Toprol XL] 25 mg PO DAILY 12/23/19 10/03/23 History Nystatin 100,000 Unit/gm Powd 1 applic TOPICAL BID 12/23/19 12/23/19 History [Mycostatin Powder] Aspirin EC [Ecotrin Low Dose] 81 mg PO DAILY #30 tablet.dr 12/25/19 10/03/23 Rx Rosuvastatin Calcium [Crestor] 20 mg PO DAILY #30 tab 12/25/19 10/03/23 Rx Cephalexin [Keflex] 500 mg PO Q6HR #40 cap 06/15/22 Rx ramipriL 5 mg PO DAILY 10/03/23 10/03/23 History Allergies Allergy/AdvReac Type Severity Reaction Status Date / Time ampicillin AdvReac Flu Verified 06/17/22 23:32 symptoms ciprofloxacin [From Cipro] AdvReac Unknown Verified 06/17/22 23:32 clindamycin AdvReac Rash/Hives Verified 06/17/22 23:32 latex AdvReac Rash/Hives Verified 06/17/22 23:32 Tetracyclines AdvReac Nausea & Verified 06/17/22 23:32 Vomiting,diarrhea dial soap AdvReac Itching Uncoded 06/17/22 23:32 Physical Exam Vitals: Vital Signs Temp Pulse Resp BP Pulse Ox 10/03/23 15:30 98.0 F 65 18 173/84 98 Intake and Output 10/03/23 10/03/23 10/03/23 06:59 14:59 22:59 Other: Weight 104.78 kg Morbidly obese,, comfortable no acute distress. The patient appeared well nourished and normally developed. Vital signs as documented. Head exam is unremarkable. No scleral icterus or corneal arcus noted. Neck is without jugular venous distension, thyromegaly, or carotid bruits. The patient is a Mallampati class IV with significant crowding of the posterior pharynx. Carotid upstrokes are brisk bilaterally. Lungs are clear to auscultation and percussion. Cardiac exam reveals the PMI to be normally sized and situated. Rhythm is regular. First and second heart sounds normal. No murmurs, rubs or gallops. Abdominal exam reveals normal bowel sounds, no masses, no organomegaly and no aortic enlargement. Extremities are nonedematous and both femoral and pedal pulses are normal. Examination of the skin revealed no evidence of significant rashes, suspicious appearing nevi or other concerning lesions. Neurologically, the patient is awake and alert and the patient does not have any focal neurological deficit. Cranial nerves are essentially intact. Assessment and Plan Plan: Obstructive sleep apnea, severe at baseline with an AHI of 70.9. The patient remains on CPAP therapy at a pressure of 13 cm of water. Machine is functional and the patient has been compliant with CPAP therapy. No issues with ongoing treatment. Her chronic fatigue is related to comorbidities. No major hypersomnia or sleepiness during the day Advanced sleep phase syndrome Morbid obesity with a BMI of 48.3 Hypertension History of bladder cancer Degenerative arthritis with chronic back pain and right knee replacement Hypertension Vertigo Fibromyalgia Hypothyroidism History of mini strokes Hyperlipidemia Plan I checked the patient's CPAP machine. The machine is functional. I do not see the need to update the machine at this point in time. Will continue CPAP therapy at a pressure of 13 cm of water and we will keep the same mask interface which is an AirFit P10 nasal pillow. Refills will be given. The patient will be encouraged to gradually move her wake-up time by 1 hour every 1 to 2 weeks along with light therapy to improve her advanced sleep phase syndrome. The goal will be to get up at around 9 AM and go to sleep at midnight. This will be done gradually over the next few months. Maintain good sleep hygiene measures. 3 comorbidities. Will continue to follow. See me back in a years time in follow- up. Sleep Note - Sleep Data ESS Total: 8 - Sleep Note Sleep Note: Temperature: 98.0 F Pulse Rate: 65 Respiratory Rate: 18 Blood Pressure: 173/84 SpO2: 98 Height: 4 ft 10 in Weight: 104.78 kg BMI: Neck Circumference: 16
== END ==
LOC: 3 N SLEEP 14:52
PROVIDERS: ATTEND Internal Medicine Critical Care Medicine
DX: G47.33 Obstructive sleep apnea (adult) (pediatric) (principal); E66.01 Morbid (severe) obesity due to excess calories; I10 Essential (primary) hypertension; G47.22 Circadian rhythm sleep disorder, advanced sleep phase type; R42 Dizziness and giddiness; M79.7 Fibromyalgia; G89.29 Other chronic pain; E78.5 Hyperlipidemia, unspecified; M19.90 Unspecified osteoarthritis, unspecified site; E03.9 Hypothyroidism, unspecified; Z96.651 Presence of right artificial knee joint; Z68.42 Body mass index [BMI] 45.0-49.9, adult; Z85.51 Personal history of malignant neoplasm of bladder; Z86.73 Personal history of transient ischemic attack (TIA), and cerebral infarction without residual deficits; Z99.89 Dependence on other enabling machines and devices; Z88.1 Allergy status to other antibiotic agents; Z88.8 Allergy status to other drugs, medicaments and biological substances; Z91.040 Latex allergy status; Z79.899 Other long term (current) drug therapy; Z79.890 Hormone replacement therapy
CPT/HCPCS: 99211